=== PATIENT | male | born 1965 | race Caucasian/White ===

== ENCOUNTER 2018-09-04 02:52 | Outpatient (CLI) | payer OTHER ==
[2018-09-04 10:13] LABS: #Eosinphils 0.2 thou/uL (0.0-0.7); #Monocytes 0.7 thou/uL (0.11-0.59); %Basophils 0.5 % (0.0-1.0); %Eosinophils 2.1 % (0.0-10.0); %Lymphocytes 25.6 % (21.0-51.0); %Monocytes 8.7 % (0.0-10.0); %Neutrophils 63.1 % (42.0-75.0); Mean Corpuscular HGB CONC 31.9 g/dL (32.0-36.0); Mean Corpuscular Hemoglobin 29.8 pg (27.0-31.0); Mean Corpuscular Volume 93.7 fL (78.0-98.0); Mean Platelet Volume 7.9 fL (7.4-10.4); Platelet Count 244 thou/uL (130-400); RBC Distribution Width 12.9 % (11.5-14.5); Red Blood Cell (RBC) Count 5.38 mill/uL (4.70-6.10); White Blood Cell (WBC) Count 7.9 thou/uL (4.8-10.8)
[2018-09-04 10:36] LABS: ALT (SGPT) 25 U/L (8-55); AST (SGOT) 17 U/L (5-34); Albumin 4.2 g/dL (3.5-5.0); Alkaline Phosphatase 59 U/L (40-150); Anion Gap 14 mmol/L (10-20); BUN (Urea Nitrogen) 29 mg/dL (8.4-25.7); Bilirubin, Total 0.6 mg/dL (0.2-1.2); Calc. Creatinine Clearance 0 mL/min (70-130); Calcium 9.4 mg/dL (7.8-10.44); Carbon Dioxide 27 mmol/L (22-29); Cardiac Risk 4.2 (Less than 4.5); Chloride 106 mmol/L (98-107); Cholesterol 162 mg/dl (< 200 Desired); Estimated GFR-MDRD 69; Globulin 3.5 g/dL (2.4-3.5); Glucose 99 mg/dL (70-105); HDL Cholesterol 39 mg/dL (>60 Neg Risk); LDL Cholesterol, Calculated 96 mg/dL; Potassium 4.2 mmol/L (3.5-5.1); Protein, Total 7.7 g/dL (6.0-8.3); Sodium 143 mmol/L (136-145); Triglycerides 135 mg/dL (Less than 150)
--- NOTE | 2018-09-04 11:40 | RAD ---
CHEST 1 VIEW: Date: 09/04/18 HISTORY: Preop. FINDINGS: Heart size is enlarged. There are atherosclerotic changes of the aorta. Lungs are clear of any infilt rative process. IMPRESSION: Cardiomegaly. No active intrathoracic disease. POS: [facility]
--- NOTE | 2018-09-06 08:54 | EKG ---
Test Reason : Blood Pressure : / mmHG Vent. Rate : 065 BPM Atrial Rate : 065 BPM P-R Int : 168 ms QRS Dur : 100 ms QT Int : 422 ms P-R-T Axes : 040 -44 054 degrees QTc Int : 438 ms Normal sinus rhythm Left axis deviation Abnormal ECG When compared with ECG of 12-MAR-2018 19:04, No significant change was found Confirmed by DR. Gricelda JENNINGS ([id number]) on 09/06/2018 8:54:23 AM Referred By: MARBIN Confirmed By:DR. Gricelda JENNINGS
== END 2018-09-04 02:53 | disposition home or self-care (01) ==
LOC: LABBT 02:52
PROVIDERS: ATTEND Internal Medicine Cardiovascular Disease
DX: Z01.818 Encounter for other preprocedural examination (principal); R94.39 Abnormal result of other cardiovascular function study
CPT/HCPCS: 71045; 80053; 80061; 85025; 93005; 93010

== ENCOUNTER 2018-09-06 05:55 | Day surgery (SDC) | payer OTHER ==
[2018-09-04 09:27] VITALS: BMI 45.8
[2018-09-06] MEDS ORDERED: Heparin 10,000 UNITS/1 ML VIAL ONE (06:46)
[2018-09-06] MEDS ORDERED: Fentanyl 100 MCG/2 ML VIAL ONE (07:11)
[2018-09-06] MEDS ORDERED: Midazolam HCl 2 mg/2 ml Vial ONE (07:11)
[2018-09-06] MEDS ORDERED: Protamine Sulfate 50 MG/5 ML VIAL ONE (07:42)
[2018-09-06] MEDS ORDERED: Iopamidol 370 76% 100 ML VIAL ONE (09:23)
[2018-09-06] MEDS ORDERED: Iopamidol 370 76% 50 ML VIAL FS ONE (09:23)
== END 2018-09-06 15:09 | disposition home or self-care (01) ==
LOC: CCL 05:55
PROVIDERS: ATTEND Internal Medicine Cardiovascular Disease
PROC: B2111ZZ Fluoroscopy of Multiple Coronary Arteries using Low Osmolar Contrast (ICD-10-PCS; principal; 2018-09-06)
PROC: 4A023N7 Measurement of Cardiac Sampling and Pressure, Left Heart, Percutaneous Approach (ICD-10-PCS; principal; 2018-09-06)
DX: I25.10 Atherosclerotic heart disease of native coronary artery without angina pectoris (principal); E78.00 Pure hypercholesterolemia, unspecified; I11.0 Hypertensive heart disease with heart failure; I50.32 Chronic diastolic (congestive) heart failure; I82.501 Chronic embolism and thrombosis of unspecified deep veins of right lower extremity; D68.51 Activated protein C resistance; E66.9 Obesity, unspecified; Z68.42 Body mass index [BMI] 45.0-49.9, adult; Z87.891 Personal history of nicotine dependence; Z79.01 Long term (current) use of anticoagulants; Z79.82 Long term (current) use of aspirin; Z79.899 Other long term (current) drug therapy
CPT/HCPCS: 85347; 93458; 99152; C1769; J1644; J2250; J2720; J3010; Q9967

== ENCOUNTER 2021-12-28 08:58 | Day surgery (SDC) | payer SELFPAY ==
[2021-12-23 12:58] VITALS: BMI 42.8
[2021-12-28] MEDS ORDERED: Lidocaine 1% (PF) 30 ML VIAL ONE (09:43)
[2021-12-28] MEDS ORDERED: Isoproterenol 0.2 MG/1 ML AMP ONE (09:43)
[2021-12-28] MEDS ORDERED: Heparin 10,000 UNITS/ 10 ML VIAL ONE (09:43)
[2021-12-28] MEDS ORDERED: Heparin 25,000 units/D5W 0 ML ONE (09:43)
[2021-12-28] MEDS ORDERED: PROPOFOL 200 MG/20 ML VIAL ONE (13:50)
== END 2021-12-28 15:15 | disposition home or self-care (01) ==
LOC: SDC 08:58
PROVIDERS: ATTEND Internal Medicine Cardiovascular Disease
PROC: 5A2204Z Restoration of Cardiac Rhythm, Single (ICD-10-PCS; principal; 2021-12-28)
DX: I48.3 Typical atrial flutter (principal); D68.51 Activated protein C resistance; I11.0 Hypertensive heart disease with heart failure; I50.32 Chronic diastolic (congestive) heart failure; I08.1 Rheumatic disorders of both mitral and tricuspid valves; J44.9 Chronic obstructive pulmonary disease, unspecified; I25.10 Atherosclerotic heart disease of native coronary artery without angina pectoris; E78.5 Hyperlipidemia, unspecified; I45.2 Bifascicular block; E66.01 Morbid (severe) obesity due to excess calories; Z68.41 Body mass index [BMI] 40.0-44.9, adult; Z86.718 Personal history of other venous thrombosis and embolism; Z87.891 Personal history of nicotine dependence; Z79.01 Long term (current) use of anticoagulants; Z79.82 Long term (current) use of aspirin; Z79.899 Other long term (current) drug therapy
CPT/HCPCS: 93005; 93010; J1644; J2001; J2704

== ENCOUNTER 2022-04-21 09:20 | Inpatient (IN) | payer OTHER ==
[2022-04-21 09:56] LABS: #Basophils 0.1 thou/uL (0.0-0.2); #Lymphocytes 0.8 thou/uL (1.20-3.40); #Monocytes 0.5 thou/uL (0.11-0.59); #Neutrophils 4.7 thou/uL (1.40-6.50); %Basophils 0.9 % (0.0-1.0); %Eosinophils 0.4 % (0.0-10.0); %Lymphocytes 13.4 % (21.0-51.0); %Monocytes 8.9 % (0.0-10.0); %Neutrophils 76.4 % (42.0-75.0); Hemoglobin 16.5 g/dL (14.0-18.0); Mean Corpuscular Hemoglobin 27.1 pg (27.0-31.0); Mean Corpuscular Volume 96.7 fL (78.0-98.0); Platelet Count 200 thou/uL (130-400); RBC Distribution Width 20.7 % (11.5-14.5); White Blood Cell (WBC) Count 6.1 thou/uL (4.8-10.8)
[2022-04-21] MEDS ORDERED: Furosemide 40 MG/4 ML VIAL ONE (10:14)
[2022-04-21 10:21] LABS: ALT (SGPT) Less than 7 U/L (8-55); AST (SGOT) 12 U/L (5-34); Albumin 3.4 g/dL (3.5-5.0); Alkaline Phosphatase 88 U/L (40-110); Anion Gap 11 mmol/L (10-20); BUN (Urea Nitrogen) 18 mg/dL (8.4-25.7); Bilirubin, Total 1.1 mg/dL (0.2-1.2); Calc. Creatinine Clearance 0 mL/min (70-130); Calcium 8.7 mg/dL (7.8-10.44); Carbon Dioxide 32 mmol/L (22-29); Chloride 101 mmol/L (98-107); Estimated GFR 102; Globulin 3.2 g/dL (2.4-3.5); Glucose 91 mg/dL (70-105); Potassium 4.4 mmol/L (3.5-5.1); Protein, Total 6.6 g/dL (6.0-8.3); Sodium 140 mmol/L (136-145)
[2022-04-21 11:54] LABS: Magnesium 1.7 mg/dL (1.6-2.6)
[2022-04-21] MEDS ORDERED: Magnesium Sulfate 4 GM in Sodium Chloride 0.9% 250 ML 250 ML IVPB SCH (13:00)
[2022-04-21] MEDS ORDERED: Electrolyte Replacement Protocol 1 EACH FS SCH (13:00)
[2022-04-21] MEDS ORDERED: Magnesium 2 GM/50 ML(in water) 2 GM in Premix Bag 1 BAG IVPB SCH (13:30)
[2022-04-21] MEDS ORDERED: Electrolyte Replacement Protocol FS PRN (13:30)
[2022-04-21] MEDS ORDERED: Ondansetron ODT 4 MG TAB PO PRN (13:37)
[2022-04-21] MEDS ORDERED: Ondansetron PF 4 MG/2 ML Vial IVP PRN (13:37)
[2022-04-21] MEDS ORDERED: Calcium Carbonate 500 MG ChewTAB PO PRN (13:37)
[2022-04-21] MEDS ORDERED: Acetaminophen 325 MG TAB PO PRN (13:37)
[2022-04-21] MEDS ORDERED: Furosemide 40 MG/4 ML VIAL SLOW IVP SCH (14:00)
[2022-04-21 15:30] VITALS: BMI 41.2
[2022-04-21] MEDS: Metoprolol Tartrate 100 MG TAB PO SCH (20:28)
[2022-04-21] MEDS: Senokot S 8.6-50 MG TAB PO SCH (20:28)
[2022-04-21] MEDS: Famotidine 20 MG TAB PO SCH (20:28)
[2022-04-21] MEDS: Ezetimibe 10 MG TAB PO SCH (20:28)
[2022-04-21] MEDS: Acetaminophen 500 MG TAB PO PRN (20:31)
[2022-04-22 04:57] LABS: Hemoglobin 16.3 g/dL (14.0-18.0); Mean Corpuscular HGB CONC 27.1 g/dL (32.0-36.0); Mean Corpuscular Hemoglobin 26.7 pg (27.0-31.0); Mean Corpuscular Volume 98.5 fL (78.0-98.0); Mean Platelet Volume 9.7 fL (7.4-10.4); Platelet Count 184 thou/uL (130-400); RBC Distribution Width 20.1 % (11.5-14.5); White Blood Cell (WBC) Count 4.8 thou/uL (4.8-10.8)
[2022-04-22 05:05] LABS: #Lymphocytes 0.9 thou/uL (1.20-3.40); #Monocytes 0.6 thou/uL (0.11-0.59); #Neutrophils 3.3 thou/uL (1.40-6.50); %Basophils 0.4 % (0.0-1.0); %Eosinophils 0.8 % (0.0-10.0); %Lymphocytes 18.3 % (21.0-51.0); %Monocytes 11.7 % (0.0-10.0); %Neutrophils 68.9 % (42.0-75.0)
[2022-04-22 05:16] LABS: ALT (SGPT) Less than 7 U/L (8-55); AST (SGOT) 12 U/L (5-34); Albumin 3.5 g/dL (3.5-5.0); Alkaline Phosphatase 89 U/L (40-110); Anion Gap 14 mmol/L (10-20); BUN (Urea Nitrogen) 19 mg/dL (8.4-25.7); Bilirubin, Total 1.3 mg/dL (0.2-1.2); Calc. Creatinine Clearance 183 mL/min (70-130); Calcium 8.9 mg/dL (7.8-10.44); Carbon Dioxide 30 mmol/L (22-29); Chloride 100 mmol/L (98-107); Estimated GFR 103; Globulin 3.1 g/dL (2.4-3.5); Glucose 77 mg/dL (70-105); Magnesium 1.9 mg/dL (1.6-2.6); Potassium 4.2 mmol/L (3.5-5.1); Protein, Total 6.6 g/dL (6.0-8.3); Sodium 140 mmol/L (136-145)
[2022-04-22] MEDS ORDERED: Magnesium 2 GM/50 ML(in water) 2 GM in Premix Bag 1 BAG IVPB SCH ×2 (06:45→08:00)
[2022-04-22] MEDS ORDERED: Furosemide 40 MG/4 ML VIAL SLOW IVP SCH (08:15)
[2022-04-22] MEDS ORDERED: Furosemide 40 MG TAB PO SCH (09:00)
[2022-04-22] MEDS: Metoprolol Tartrate 100 MG TAB PO SCH ×2 (10:37→20:17)
[2022-04-22] MEDS: Famotidine 20 MG TAB PO SCH ×2 (10:37→20:17)
[2022-04-22] MEDS: Amlodipine 5 MG TAB PO SCH (10:38)
[2022-04-22] MEDS: Aspirin 81 mg Enteric Coated Tablet PO SCH (10:38)
[2022-04-22] MEDS: Lisinopril 20 MG TAB PO SCH (10:38)
[2022-04-22] MEDS: Rivaroxaban 10 MG TAB PO SCH (10:38)
[2022-04-22] MEDS: Atorvastatin Calcium 40 MG TAB PO SCH (10:38)
[2022-04-22] MEDS: Senokot S 8.6-50 MG TAB PO SCH ×2 (10:39→20:20)
[2022-04-22] MEDS: Furosemide 40 MG/4 ML VIAL SLOW IVP SCH (14:26)
[2022-04-22] MEDS: Ezetimibe 10 MG TAB PO SCH (20:17)
[2022-04-22] MEDS: Acetaminophen 500 MG TAB PO PRN (20:23)
[2022-04-23] MEDS: Furosemide 40 MG/4 ML VIAL SLOW IVP SCH ×2 (06:23→13:36)
[2022-04-23] MEDS: Amlodipine 5 MG TAB PO SCH (08:36)
[2022-04-23] MEDS: Atorvastatin Calcium 40 MG TAB PO SCH (08:37)
[2022-04-23] MEDS: Aspirin 81 mg Enteric Coated Tablet PO SCH (08:37)
[2022-04-23] MEDS: Lisinopril 20 MG TAB PO SCH (08:38)
[2022-04-23] MEDS: Famotidine 20 MG TAB PO SCH ×2 (08:38→20:03)
[2022-04-23] MEDS: Metoprolol Tartrate 100 MG TAB PO SCH ×2 (08:40→20:03)
[2022-04-23] MEDS: Rivaroxaban 10 MG TAB PO SCH (08:40)
[2022-04-23] MEDS: Senokot S 8.6-50 MG TAB PO SCH ×2 (08:41→08:45)
[2022-04-23] MEDS ORDERED: Chloraseptic Spray 180 ml Bottle PO PRN (10:53)
[2022-04-23] MEDS: Acetaminophen 500 MG TAB PO PRN (20:02)
[2022-04-23] MEDS: Ezetimibe 10 MG TAB PO SCH (20:03)
[2022-04-24] MEDS: Senokot S 8.6-50 MG TAB PO SCH ×3 (00:14→21:02)
[2022-04-24 05:11] LABS: Hemoglobin 16.6 g/dL (14.0-18.0); Mean Corpuscular HGB CONC 28.1 g/dL (32.0-36.0); Mean Corpuscular Hemoglobin 27.1 pg (27.0-31.0); Mean Corpuscular Volume 96.6 fL (78.0-98.0); Mean Platelet Volume 10.7 fL (7.4-10.4); Platelet Count 156 thou/uL (130-400); Red Blood Cell (RBC) Count 6.13 mill/uL (4.70-6.10); White Blood Cell (WBC) Count 5.8 thou/uL (4.8-10.8)
[2022-04-24] MEDS: Furosemide 40 MG/4 ML VIAL SLOW IVP SCH ×2 (05:18→14:45)
[2022-04-24 05:23] LABS: Anion Gap 17 mmol/L (10-20); BUN (Urea Nitrogen) 25 mg/dL (8.4-25.7); Calc. Creatinine Clearance 152 mL/min (70-130); Calcium 9.4 mg/dL (7.8-10.44); Carbon Dioxide 32 mmol/L (22-29); Chloride 99 mmol/L (98-107); Estimated GFR 95; Glucose 81 mg/dL (70-105); Sodium 144 mmol/L (136-145)
[2022-04-24] MEDS: Atorvastatin Calcium 40 MG TAB PO SCH (09:11)
[2022-04-24] MEDS: Famotidine 20 MG TAB PO SCH ×2 (09:12→21:00)
[2022-04-24] MEDS: Lisinopril 20 MG TAB PO SCH (09:12)
[2022-04-24] MEDS: Aspirin 81 mg Enteric Coated Tablet PO SCH (09:13)
[2022-04-24] MEDS: Rivaroxaban 10 MG TAB PO SCH (09:13)
[2022-04-24] MEDS: Metoprolol Tartrate 100 MG TAB PO SCH ×2 (09:13→21:00)
[2022-04-24] MEDS: Amlodipine 5 MG TAB PO SCH (09:13)
[2022-04-24 11:29] LABS: Bacteria/HPF None Seen HPF (None Seen); Bilirubin Negative (Negative); Blood, Urine 2+ (Negative); Clarity Clear (Clear); Glucose, Urine (Dipstick) Normal (Negative); Ketone, Urine Negative (Negative); Leukocyte Negative Leu/uL (Negative); Nitrite Negative (Negative); Protein, Urine (Dipstick) Negative (Neg-Trace); RBC/HPF 0-3 HPF (0-3); Specific Gravity, Urine 1.007 (1.002-1.036); Squamous Epithelial 0-3 HPF (0-3); Urobilinogen Normal mg/dL (Less than 2); WBC/HPF 0-3 HPF (0-3); pH, Urine 5.5 (5.0-9.0)
[2022-04-24 11:31] LABS: Urine Culture Reflex No No
[2022-04-24] MEDS ORDERED: ALPRAZolam 0.5 MG TAB PO SCH (19:00)
[2022-04-24 19:13] LABS: Base Excess (BEa) 8.3 mEq/L (-2.0 to +3.0); CO2 Tension 59.8 mmHg (35.0-45.0); Calcium, Ionized (arterial) 1.17 mmol/L (1.12-1.30); Carboxyhemoglobin (COHb) 2.1 gm% (0.0-3.0); Hemoglobin (Hb) 18.1 g/dL (14.0-18.0); O2 Tension (PaO2), arterial 60.9 mmHg (80.0-100.0); Potassium - ABG Lab 3.78 mmol/L (3.70-5.30)
[2022-04-24 19:20] LABS: Puncture Site LRA
[2022-04-24] MEDS: Ezetimibe 10 MG TAB PO SCH (21:00)
[2022-04-25] MEDS ORDERED: OLANZapine 10 MG VIAL IM SCH (01:45)
[2022-04-25] MEDS: Furosemide 40 MG/4 ML VIAL SLOW IVP SCH ×2 (06:30→15:31)
[2022-04-25 09:01] LABS: Anion Gap 17 mmol/L (10-20); BUN (Urea Nitrogen) 24 mg/dL (8.4-25.7); Calc. Creatinine Clearance 137 mL/min (70-130); Calcium 9.1 mg/dL (7.8-10.44); Carbon Dioxide 30 mmol/L (22-29); Chloride 99 mmol/L (98-107); Estimated GFR 87; Glucose 70 mg/dL (70-105); Potassium 4.2 mmol/L (3.5-5.1); Sodium 142 mmol/L (136-145)
[2022-04-25] MEDS: Lisinopril 20 MG TAB PO SCH (09:16)
[2022-04-25] MEDS: Atorvastatin Calcium 40 MG TAB PO SCH (09:16)
[2022-04-25] MEDS: Famotidine 20 MG TAB PO SCH ×2 (09:27→20:32)
[2022-04-25] MEDS: Aspirin 81 mg Enteric Coated Tablet PO SCH (09:27)
[2022-04-25] MEDS: Amlodipine 5 MG TAB PO SCH (09:27)
[2022-04-25] MEDS: Metoprolol Tartrate 100 MG TAB PO SCH ×2 (09:27→20:32)
[2022-04-25] MEDS: Rivaroxaban 10 MG TAB PO SCH (09:27)
[2022-04-25] MEDS: Senokot S 8.6-50 MG TAB PO SCH ×2 (09:28→20:32)
[2022-04-25] MEDS ORDERED: acetaZOLAMIDE Sodium 500 mg Vial IVP SCH (10:30)
[2022-04-25] MEDS ORDERED: Sterile Water 10 ML ONE (11:25)
[2022-04-25] MEDS: Ezetimibe 10 MG TAB PO SCH (20:32)
[2022-04-25] MEDS: acetaZOLAMIDE Sodium 500 mg Vial IVP SCH (20:40)
[2022-04-26] MEDS: Acetaminophen 500 MG TAB PO PRN ×3 (02:50→21:00)
[2022-04-26 04:24] LABS: Hemoglobin 17.2 g/dL (14.0-18.0); Mean Corpuscular HGB CONC 28.5 g/dL (32.0-36.0); Mean Corpuscular Hemoglobin 28.3 pg (27.0-31.0); Mean Corpuscular Volume 99.3 fL (78.0-98.0); Platelet Count 129 thou/uL (130-400); RBC Distribution Width 21.1 % (11.5-14.5); White Blood Cell (WBC) Count 6.7 thou/uL (4.8-10.8)
[2022-04-26] MEDS: Furosemide 40 MG/4 ML VIAL SLOW IVP SCH ×2 (05:33→14:37)
[2022-04-26 09:53] LABS: Chloride 98 mmol/L (98-107); Potassium 3.8 mmol/L (3.5-5.1); Sodium 146 mmol/L (136-145)
[2022-04-26 09:54] LABS: Calcium 8.8 mg/dL (7.8-10.44); Glucose 66 mg/dL (70-105)
[2022-04-26 09:56] LABS: Carbon Dioxide 37 mmol/L (22-29)
[2022-04-26 09:58] LABS: BUN (Urea Nitrogen) 23 mg/dL (8.4-25.7); Calc. Creatinine Clearance 141 mL/min (70-130); Estimated GFR 93
[2022-04-26] MEDS: Sterile Water 10 ML ONE (10:07)
[2022-04-26] MEDS: acetaZOLAMIDE Sodium 500 mg Vial IVP SCH ×2 (10:07→20:59)
[2022-04-26] MEDS: Metoprolol Tartrate 100 MG TAB PO SCH ×3 (10:08→21:01)
[2022-04-26] MEDS: Rivaroxaban 10 MG TAB PO SCH (10:08)
[2022-04-26] MEDS: Atorvastatin Calcium 40 MG TAB PO SCH (10:08)
[2022-04-26] MEDS: Lisinopril 20 MG TAB PO SCH (10:09)
[2022-04-26] MEDS: Famotidine 20 MG TAB PO SCH ×2 (10:09→21:00)
[2022-04-26] MEDS: Aspirin 81 mg Enteric Coated Tablet PO SCH (10:09)
[2022-04-26] MEDS: Amlodipine 5 MG TAB PO SCH (10:10)
[2022-04-26] MEDS: Senokot S 8.6-50 MG TAB PO SCH ×2 (10:11→21:00)
[2022-04-26 11:09] LABS: Anion Gap 15 mmol/L (10-20)
[2022-04-26 13:20] LABS: Actual Bicarbonate (HCO3a) 39.2 mEq/L (22-28); Base Excess (BEa) 6.5 mEq/L (-2.0 to +3.0); Calcium, Ionized (arterial) 1.16 mmol/L (1.12-1.30); Carboxyhemoglobin (COHb) 3.4 gm% (0.0-3.0); Hemoglobin (Hb) 16.9 g/dL (14.0-18.0); Potassium - ABG Lab 3.87 mmol/L (3.70-5.30)
[2022-04-26 13:34] LABS: pH, Arterial 7.22 (7.35-7.45)
[2022-04-26 13:35] LABS: CO2 Tension 98.8 mmHg (35.0-45.0); O2 Tension (PaO2), arterial 50.2 mmHg (80.0-100.0)
[2022-04-26 13:36] LABS: Puncture Site RRA
[2022-04-26] MEDS: Ezetimibe 10 MG TAB PO SCH (21:00)
[2022-04-27] MEDS: Acetaminophen 500 MG TAB PO PRN ×3 (03:56→20:35)
[2022-04-27 04:08] LABS: BUN (Urea Nitrogen) 26 mg/dL (8.4-25.7); Calc. Creatinine Clearance 148 mL/min (70-130); Calcium 8.4 mg/dL (7.8-10.44); Estimated GFR 98; Glucose 70 mg/dL (70-105)
[2022-04-27 04:17] LABS: Anion Gap 15 mmol/L (10-20); Carbon Dioxide 34 mmol/L (22-29); Chloride 98 mmol/L (98-107); Potassium 3.8 mmol/L (3.5-5.1); Sodium 143 mmol/L (136-145)
[2022-04-27] MEDS: Furosemide 40 MG/4 ML VIAL SLOW IVP SCH ×2 (05:39→13:52)
[2022-04-27 05:47] LABS: Hemoglobin 15.5 g/dL (14.0-18.0); Mean Corpuscular HGB CONC 27.1 g/dL (32.0-36.0); Mean Corpuscular Hemoglobin 26.9 pg (27.0-31.0); Mean Corpuscular Volume 99.3 fL (78.0-98.0); Mean Platelet Volume 10.6 fL (7.4-10.4); Platelet Count 127 thou/uL (130-400); RBC Distribution Width 20.5 % (11.5-14.5); Red Blood Cell (RBC) Count 5.75 mill/uL (4.70-6.10)
[2022-04-27] MEDS ORDERED: Sterile Water 10 ML ONE (09:17)
[2022-04-27] MEDS: acetaZOLAMIDE Sodium 500 mg Vial IVP SCH ×2 (09:47→20:35)
[2022-04-27] MEDS: Sterile Water 10 ML ONE (09:48)
[2022-04-27] MEDS: Famotidine 20 MG TAB PO SCH ×2 (09:49→20:36)
[2022-04-27] MEDS: Rivaroxaban 10 MG TAB PO SCH (09:49)
[2022-04-27] MEDS: Amlodipine 5 MG TAB PO SCH (09:50)
[2022-04-27] MEDS: Aspirin 81 mg Enteric Coated Tablet PO SCH (09:50)
[2022-04-27] MEDS: Atorvastatin Calcium 40 MG TAB PO SCH (09:50)
[2022-04-27] MEDS: Lisinopril 20 MG TAB PO SCH (09:52)
[2022-04-27] MEDS: Senokot S 8.6-50 MG TAB PO SCH ×2 (09:53→20:36)
[2022-04-27] MEDS: Metoprolol Tartrate 100 MG TAB PO SCH ×2 (09:53→20:36)
[2022-04-27] MEDS: Ezetimibe 10 MG TAB PO SCH (20:36)
[2022-04-28 04:10] LABS: BUN (Urea Nitrogen) 27 mg/dL (8.4-25.7); Calc. Creatinine Clearance 163 mL/min (70-130); Calcium 8.5 mg/dL (7.8-10.44); Estimated GFR 101; Glucose 79 mg/dL (70-105)
[2022-04-28 04:20] LABS: Anion Gap 15 mmol/L (10-20); Carbon Dioxide 37 mmol/L (22-29); Chloride 95 mmol/L (98-107); Potassium 3.4 mmol/L (3.5-5.1); Sodium 144 mmol/L (136-145)
[2022-04-28] MEDS: Furosemide 40 MG/4 ML VIAL SLOW IVP SCH (05:48)
[2022-04-28] MEDS: Amlodipine 5 MG TAB PO SCH (09:02)
[2022-04-28] MEDS: Lisinopril 20 MG TAB PO SCH (09:03)
[2022-04-28] MEDS: Metoprolol Tartrate 100 MG TAB PO SCH ×2 (09:03→20:52)
[2022-04-28] MEDS: Atorvastatin Calcium 40 MG TAB PO SCH (09:04)
[2022-04-28] MEDS: Famotidine 20 MG TAB PO SCH ×2 (09:04→20:51)
[2022-04-28] MEDS: Rivaroxaban 10 MG TAB PO SCH (09:04)
[2022-04-28] MEDS: Aspirin 81 mg Enteric Coated Tablet PO SCH (09:04)
[2022-04-28] MEDS: Acetaminophen 500 MG TAB PO PRN (09:04)
[2022-04-28] MEDS: acetaZOLAMIDE Sodium 500 mg Vial IVP SCH ×2 (09:06→21:13)
[2022-04-28] MEDS: Sterile Water 10 ML VIAL IVP SCH ×2 (09:08→21:13)
[2022-04-28] MEDS: Senokot S 8.6-50 MG TAB PO SCH ×2 (09:18→20:50)
[2022-04-28] MEDS ORDERED: Potassium Chloride 20 MEQ TAB PO SCH (10:00)
[2022-04-28] MEDS: Ezetimibe 10 MG TAB PO SCH (20:50)
[2022-04-28] MEDS: Sodium Chloride 0.65% Nasal 44 ML BOT EA NARE SCH (20:53)
[2022-04-29] MEDS: Acetaminophen 500 MG TAB PO PRN (00:52)
[2022-04-29 03:53] LABS: #Eosinphils 0.1 thou/uL (0.0-0.7); #Monocytes 0.6 thou/uL (0.11-0.59); #Neutrophils 3.7 thou/uL (1.40-6.50); %Basophils 0.2 % (0.0-1.0); %Eosinophils 1.4 % (0.0-10.0); %Lymphocytes 17.8 % (21.0-51.0); %Monocytes 10.9 % (0.0-10.0); %Neutrophils 69.6 % (42.0-75.0); Hemoglobin 14.9 g/dL (14.0-18.0); Mean Corpuscular HGB CONC 27.5 g/dL (32.0-36.0); Mean Corpuscular Hemoglobin 27.1 pg (27.0-31.0); Mean Corpuscular Volume 98.6 fL (78.0-98.0); Mean Platelet Volume 10.1 fL (7.4-10.4); Platelet Count 131 thou/uL (130-400); RBC Distribution Width 20.3 % (11.5-14.5); Red Blood Cell (RBC) Count 5.48 mill/uL (4.70-6.10); White Blood Cell (WBC) Count 5.4 thou/uL (4.8-10.8)
[2022-04-29 04:11] LABS: BUN (Urea Nitrogen) 25 mg/dL (8.4-25.7); Calc. Creatinine Clearance 194 mL/min (70-130); Calcium 8.5 mg/dL (7.8-10.44); Estimated GFR 108; Glucose 72 mg/dL (70-105)
[2022-04-29 04:21] LABS: Anion Gap 15 mmol/L (10-20); Carbon Dioxide 34 mmol/L (22-29); Chloride 98 mmol/L (98-107); Potassium 3.7 mmol/L (3.5-5.1); Sodium 143 mmol/L (136-145)
[2022-04-29] MEDS: Amlodipine 5 MG TAB PO SCH (08:54)
[2022-04-29] MEDS: Lisinopril 20 MG TAB PO SCH (08:54)
[2022-04-29] MEDS: Metoprolol Tartrate 100 MG TAB PO SCH ×2 (08:54→21:08)
[2022-04-29] MEDS: Aspirin 81 mg Enteric Coated Tablet PO SCH (08:58)
[2022-04-29] MEDS: Senokot S 8.6-50 MG TAB PO SCH ×2 (08:58→21:07)
[2022-04-29] MEDS: Atorvastatin Calcium 40 MG TAB PO SCH (08:58)
[2022-04-29] MEDS: Rivaroxaban 10 MG TAB PO SCH (08:58)
[2022-04-29] MEDS: Famotidine 20 MG TAB PO SCH ×2 (08:58→21:07)
[2022-04-29] MEDS: Sterile Water 10 ML VIAL IVP SCH ×2 (08:59→21:08)
[2022-04-29] MEDS: acetaZOLAMIDE Sodium 500 mg Vial IVP SCH ×2 (08:59→21:08)
[2022-04-29] MEDS: Ezetimibe 10 MG TAB PO SCH (21:07)
[2022-04-29] MEDS: Sodium Chloride 0.65% Nasal 44 ML BOT EA NARE SCH (21:13)
[2022-04-30 04:27] LABS: Anion Gap 10 mmol/L (10-20); BUN (Urea Nitrogen) 21 mg/dL (8.4-25.7); Calc. Creatinine Clearance 188 mL/min (70-130); Calcium 8.8 mg/dL (7.8-10.44); Carbon Dioxide 34 mmol/L (22-29); Chloride 99 mmol/L (98-107); Estimated GFR 108; Glucose 75 mg/dL (70-105); Potassium 3.8 mmol/L (3.5-5.1); Sodium 139 mmol/L (136-145)
[2022-04-30] MEDS: Senokot S 8.6-50 MG TAB PO SCH ×2 (08:56→20:34)
[2022-04-30] MEDS: Famotidine 20 MG TAB PO SCH ×2 (08:56→20:34)
[2022-04-30] MEDS: Rivaroxaban 10 MG TAB PO SCH (08:56)
[2022-04-30] MEDS: Atorvastatin Calcium 40 MG TAB PO SCH (08:56)
[2022-04-30] MEDS: acetaZOLAMIDE Sodium 500 mg Vial IVP SCH ×2 (08:56→20:34)
[2022-04-30] MEDS: Aspirin 81 mg Enteric Coated Tablet PO SCH (08:56)
[2022-04-30] MEDS: Sterile Water 10 ML VIAL IVP SCH ×2 (08:57→20:34)
[2022-04-30] MEDS: Lisinopril 20 MG TAB PO SCH (10:31)
[2022-04-30] MEDS: Amlodipine 5 MG TAB PO SCH (10:31)
[2022-04-30] MEDS: Metoprolol Tartrate 100 MG TAB PO SCH ×2 (10:31→22:25)
[2022-04-30] MEDS: Tamsulosin HCl 0.4 MG CAP PO SCH (20:33)
[2022-04-30] MEDS: Ezetimibe 10 MG TAB PO SCH (20:34)
[2022-04-30] MEDS: Sodium Chloride 0.65% Nasal 44 ML BOT EA NARE SCH (20:35)
[2022-05-01] MEDS: Acetaminophen 500 MG TAB PO PRN ×2 (03:51→09:43)
[2022-05-01] MEDS: acetaZOLAMIDE Sodium 500 mg Vial IVP SCH ×2 (09:26→20:56)
[2022-05-01] MEDS: Senokot S 8.6-50 MG TAB PO SCH ×2 (09:27→20:55)
[2022-05-01] MEDS: Atorvastatin Calcium 40 MG TAB PO SCH (09:28)
[2022-05-01] MEDS: Famotidine 20 MG TAB PO SCH ×2 (09:28→20:55)
[2022-05-01] MEDS: Amlodipine 5 MG TAB PO SCH (09:28)
[2022-05-01] MEDS: Aspirin 81 mg Enteric Coated Tablet PO SCH (09:29)
[2022-05-01] MEDS: Lisinopril 20 MG TAB PO SCH (09:30)
[2022-05-01] MEDS: Metoprolol Tartrate 100 MG TAB PO SCH ×2 (09:30→20:55)
[2022-05-01] MEDS: Sterile Water 10 ML VIAL IVP SCH ×2 (09:31→22:00)
[2022-05-01] MEDS: Rivaroxaban 10 MG TAB PO SCH (09:33)
[2022-05-01] MEDS ORDERED: predniSONE 20 MG TAB PO SCH (11:30)
[2022-05-01] MEDS: Tamsulosin HCl 0.4 MG CAP PO SCH (20:55)
[2022-05-01] MEDS: Ezetimibe 10 MG TAB PO SCH (20:55)
[2022-05-01] MEDS: Sodium Chloride 0.65% Nasal 44 ML BOT EA NARE SCH (20:57)
[2022-05-02] MEDS: Senokot S 8.6-50 MG TAB PO SCH ×2 (08:34→20:39)
[2022-05-02] MEDS: Amlodipine 5 MG TAB PO SCH (08:34)
[2022-05-02] MEDS: Metoprolol Tartrate 100 MG TAB PO SCH ×2 (08:35→20:43)
[2022-05-02] MEDS: Aspirin 81 mg Enteric Coated Tablet PO SCH (08:35)
[2022-05-02] MEDS: predniSONE 20 MG TAB PO SCH (08:35)
[2022-05-02] MEDS: Rivaroxaban 10 MG TAB PO SCH (08:35)
[2022-05-02] MEDS: Famotidine 20 MG TAB PO SCH ×2 (08:35→20:38)
[2022-05-02] MEDS: Atorvastatin Calcium 40 MG TAB PO SCH (08:35)
[2022-05-02] MEDS: Lisinopril 20 MG TAB PO SCH (08:35)
[2022-05-02] MEDS: Sterile Water 10 ML VIAL IVP SCH ×3 (08:35→20:39)
[2022-05-02] MEDS: acetaZOLAMIDE Sodium 500 mg Vial IVP SCH ×2 (09:14→20:39)
[2022-05-02] MEDS: Tamsulosin HCl 0.4 MG CAP PO SCH (20:38)
[2022-05-02] MEDS: Ezetimibe 10 MG TAB PO SCH (20:38)
[2022-05-02] MEDS: Sodium Chloride 0.65% Nasal 44 ML BOT EA NARE SCH (20:39)
[2022-05-02 23:38] LABS: Campy jejuni + coli by PCR Negative (Negative); STEC Shiga Toxin 1+2 Negative (Negative); Salmonella spp. by PCR Negative (Negative); Shigella spp + EIEC by PCR Negative (Negative)
[2022-05-03 07:01] LABS: #Lymphocytes 1.2 thou/uL (1.20-3.40); #Monocytes 0.5 thou/uL (0.11-0.59); #Neutrophils 4.1 thou/uL (1.40-6.50); %Basophils 0.1 % (0.0-1.0); %Eosinophils 0.2 % (0.0-10.0); %Lymphocytes 20.7 % (21.0-51.0); %Neutrophils 70.9 % (42.0-75.0)
[2022-05-03 07:02] LABS: Mean Corpuscular HGB CONC 29.4 g/dL (32.0-36.0); Mean Corpuscular Volume 98.5 fL (78.0-98.0); Mean Platelet Volume 10.2 fL (7.4-10.4); Platelet Count 133 thou/uL (130-400); RBC Distribution Width 19.5 % (11.5-14.5); Red Blood Cell (RBC) Count 5.88 mill/uL (4.70-6.10); White Blood Cell (WBC) Count 5.8 thou/uL (4.8-10.8)
[2022-05-03 07:52] VITALS: BP 103/64; TEMP 97.8
[2022-05-03] MEDS: Amlodipine 5 MG TAB PO SCH (09:11)
[2022-05-03] MEDS: Lisinopril 20 MG TAB PO SCH (09:11)
[2022-05-03] MEDS: Metoprolol Tartrate 100 MG TAB PO SCH (09:12)
[2022-05-03] MEDS: Senokot S 8.6-50 MG TAB PO SCH (09:13)
[2022-05-03] MEDS: predniSONE 20 MG TAB PO SCH (09:13)
[2022-05-03] MEDS: Aspirin 81 mg Enteric Coated Tablet PO SCH (09:13)
[2022-05-03] MEDS: Rivaroxaban 10 MG TAB PO SCH (09:14)
[2022-05-03] MEDS: Atorvastatin Calcium 40 MG TAB PO SCH (09:14)
[2022-05-03] MEDS: Acetaminophen 500 MG TAB PO PRN (09:14)
[2022-05-03] MEDS: acetaZOLAMIDE Sodium 500 mg Vial IVP SCH (09:16)
[2022-05-03] MEDS: Famotidine 20 MG TAB PO SCH (09:16)
[2022-05-03] MEDS: Sterile Water 10 ML VIAL IVP SCH (09:16)
[2022-05-03 09:34] LABS: Anion Gap 9 mmol/L (10-20); BUN (Urea Nitrogen) 26 mg/dL (8.4-25.7); Calc. Creatinine Clearance 163 mL/min (70-130); Calcium 8.8 mg/dL (7.8-10.44); Carbon Dioxide 30 mmol/L (22-29); Chloride 105 mmol/L (98-107); Estimated GFR 105; Glucose 111 mg/dL (70-105); Sodium 140 mmol/L (136-145)
== END 2022-05-03 16:13 | disposition home health service (06) | DRG 291 ==
LOC: ERS 09:20 → 2SW 11:50 → IMCU/EMU 04-24 21:11 → T4-B 05-01 16:19
PROVIDERS: ADMIT Internal Medicine; ATTEND Internal Medicine
PROC: 0T9B70Z Drainage of Bladder with Drainage Device, Via Natural or Artificial Opening (ICD-10-PCS; 2022-04-25)
PROC: 5A09357 Assistance with Respiratory Ventilation, Less than 24 Consecutive Hours, Continuous Positive Airway Pressure (ICD-10-PCS; principal; 2022-04-27)
DX: I11.0 Hypertensive heart disease with heart failure (principal); I50.33 Acute on chronic diastolic (congestive) heart failure; J96.21 Acute and chronic respiratory failure with hypoxia; J96.22 Acute and chronic respiratory failure with hypercapnia; G93.1 Anoxic brain damage, not elsewhere classified; E87.3 Alkalosis; I48.91 Unspecified atrial fibrillation; E78.00 Pure hypercholesterolemia, unspecified; F17.210 Nicotine dependence, cigarettes, uncomplicated; E11.9 Type 2 diabetes mellitus without complications; E78.5 Hyperlipidemia, unspecified; G47.33 Obstructive sleep apnea (adult) (pediatric); E66.01 Morbid (severe) obesity due to excess calories; I08.1 Rheumatic disorders of both mitral and tricuspid valves; R33.9 Retention of urine, unspecified; M10.9 Gout, unspecified; Z20.822 Contact with and (suspected) exposure to COVID-19; Z86.718 Personal history of other venous thrombosis and embolism; Z90.49 Acquired absence of other specified parts of digestive tract; Z79.82 Long term (current) use of aspirin; Z68.34 Body mass index [BMI] 34.0-34.9, adult; Z79.899 Other long term (current) drug therapy; Z98.890 Other specified postprocedural states
CPT/HCPCS: 36415; 36416; 36600; 70450; 71045; 80048; 80053; 81001; 82805; 83630; 83735; 83880; 84484; 85025; 85027; 87505; 87811; 93005; 93010; 93798; 94760; 96374; 97139; J1120; J1940; J3475; J7512; U0003; U0005

== ENCOUNTER 2025-06-08 16:36 | Inpatient (IN) | payer OTHER, SELFPAY ==
[2025-06-08 17:53] LABS: #Basophils 0.03 10x3/uL (0.0-0.2); #Eosinophils 0.07 10x3/uL (0.0-0.7); #Monocytes 0.36 10x3/uL (0.11-0.59); #Neutrophils 5.62 10x3/uL (1.40-6.50); %Basophils 0.4 % (0.0-1.0); %Eosinophils 1.0 % (0.0-10.0); %Lymphocytes 9.0 % (21.0-51.0); %Monocytes 5.4 % (0.0-10.0); %Neutrophils 83.9 % (42.0-75.0); Hematocrit 47.9 % (42.0-52.0); Hemoglobin 14.5 g/dL (14.0-18.0); Mean Corpuscular Hemoglobin 31.2 pg (27.0-31.0); Mean Corpuscular Volume 103.0 fL (78.0-98.0); Platelet Count 235 10x3/uL (130-400); Red Blood Cell (RBC) Count 4.65 mill/uL (4.70-6.10); White Blood Cell (WBC) Count 6.70 10x3/uL (4.8-10.8)
[2025-06-08 18:10] LABS: ALT (SGPT) Less than 7 U/L (Less than 45); AST (SGOT) 14 U/L (11-34); Albumin 3.0 g/dL (3.1-4.5); Alkaline Phosphatase 128 U/L (40-110); Anion Gap 15 mmol/L (10-20); BUN (Urea Nitrogen) 20 mg/dL (8.4-25.7); Bilirubin, Total 1.0 mg/dL (0.3-1.2); Calc. Creatinine Clearance 0 mL/min (70-130); Calcium 8.4 mg/dL (7.8-10.44); Carbon Dioxide 29 mmol/L (23-31); Chloride 99 mmol/L (98-107); Globulin 3.9 g/dL (2.4-3.5); Glucose 63 mg/dL (80-115); Magnesium 1.8 mg/dL (1.6-2.6); Potassium 4.0 mmol/L (3.5-5.1); Sodium 139 mmol/L (136-145)
[2025-06-08 19:02] LABS: Actual Bicarbonate (HCO3v) 29.8 mEq/L (22-28); Base Excess 1.7 mEq/L (-2.0 to +3.0); Calcium, Ionized (venous) 1.07 mmol/L (1.16-1.32); Chloride (VBG) 99 mmol/L (98-106); Hematocrit-VBG 44 % (42.0-52.0); Hemoglobin (Hb) 15.1 g/dL (13.1-17.2); Potassium (VBG) 3.93 mmol/L (3.70-5.30); Sodium 140 mmol/L (133-146)
[2025-06-08] MEDS ORDERED: Furosemide 40 MG (4 mL) VIAL ONE (19:25)
[2025-06-08] MEDS ORDERED: predniSONE 20 MG TAB ONE (19:25)
[2025-06-08] MEDS ORDERED: Magnesium 2 GM/50 ML BAG (IN WATER) ONE (19:26)
[2025-06-09] MEDS: Apixaban 5 MG TAB PO SCH (01:16)
[2025-06-09 04:27] LABS: #Basophils Less than 0.03 10x3/uL (0.0-0.2); #Eosinophils Less than 0.03 10x3/uL (0.0-0.7); #Monocytes 0.08 10x3/uL (0.11-0.59); #Neutrophils 5.92 10x3/uL (1.40-6.50); %Basophils 0.3 % (0.0-1.0); %Eosinophils 0.0 % (0.0-10.0); %Lymphocytes 4.4 % (21.0-51.0); %Monocytes 1.3 % (0.0-10.0); %Neutrophils 93.7 % (42.0-75.0); Hematocrit 49.0 % (42.0-52.0); Hemoglobin 14.8 g/dL (14.0-18.0); Mean Corpuscular Hemoglobin 30.7 pg (27.0-31.0); Mean Corpuscular Volume 101.7 fL (78.0-98.0); Platelet Count 275 10x3/uL (130-400); Red Blood Cell (RBC) Count 4.82 mill/uL (4.70-6.10); White Blood Cell (WBC) Count 6.32 10x3/uL (4.8-10.8)
[2025-06-09 04:51] LABS: Anion Gap 19 mmol/L (10-20); BUN (Urea Nitrogen) 21 mg/dL (8.4-25.7); Calc. Creatinine Clearance 118 mL/min (70-130); Calcium 8.9 mg/dL (7.8-10.44); Carbon Dioxide 28 mmol/L (23-31); Chloride 97 mmol/L (98-107); Glucose 99 mg/dL (80-115); Magnesium 2.0 mg/dL (1.6-2.6); Potassium 4.7 mmol/L (3.5-5.1); Sodium 139 mmol/L (136-145)
[2025-06-09] MEDS: Aspirin 81 mg Enteric Coated Tablet PO SCH (09:44)
[2025-06-09] MEDS ORDERED: VANCOMYCIN IVPB PRN (11:07)
[2025-06-09] MEDS: Vancomycin (BATCH) 2.5 GM in Premix 1 BAG IVPB SCH (13:02)
[2025-06-09] MEDS ORDERED: Furosemide 40 MG (4 mL) VIAL SLOW IVP SCH (14:00)
[2025-06-09] MEDS: Acetaminophen 325 MG TAB PO PRN (15:24)
[2025-06-09] MEDS: Furosemide 40 MG (4 mL) VIAL SLOW IVP SCH (15:24)
[2025-06-10] MEDS: Vancomycin 1.25 GM / NS 250 ML VIAL-2-BAG IVPB SCH (00:26)
[2025-06-10 04:32] LABS: #Basophils Less than 0.03 10x3/uL (0.0-0.2); #Eosinophils Less than 0.03 10x3/uL (0.0-0.7); #Monocytes 0.61 10x3/uL (0.11-0.59); #Neutrophils 6.91 10x3/uL (1.40-6.50); %Basophils 0.1 % (0.0-1.0); %Eosinophils 0.0 % (0.0-10.0); %Lymphocytes 7.1 % (21.0-51.0); %Monocytes 7.5 % (0.0-10.0); %Neutrophils 85.1 % (42.0-75.0); Hematocrit 45.0 % (42.0-52.0); Hemoglobin 13.8 g/dL (14.0-18.0); Mean Corpuscular Hemoglobin 31.0 pg (27.0-31.0); Mean Corpuscular Volume 101.1 fL (78.0-98.0); Platelet Count 260 10x3/uL (130-400); Red Blood Cell (RBC) Count 4.45 mill/uL (4.70-6.10); White Blood Cell (WBC) Count 8.13 10x3/uL (4.8-10.8)
[2025-06-10 04:44] LABS: Vancomycin, Random 32.0 ug/mL (See Comment)
[2025-06-10 04:52] LABS: Anion Gap 13 mmol/L (10-20); BUN (Urea Nitrogen) 26 mg/dL (8.4-25.7); Calc. Creatinine Clearance 117 mL/min (70-130); Calcium 8.4 mg/dL (7.8-10.44); Carbon Dioxide 28 mmol/L (23-31); Chloride 100 mmol/L (98-107); Glucose 120 mg/dL (80-115); Magnesium 2.0 mg/dL (1.6-2.6); Potassium 4.1 mmol/L (3.5-5.1); Sodium 137 mmol/L (136-145)
[2025-06-10] MEDS: Vancomycin 1 GM in Premix 1 BAG IVPB SCH (13:20)
[2025-06-11 04:21] LABS: #Basophils Less than 0.03 10x3/uL (0.0-0.2); #Eosinophils 0.05 10x3/uL (0.0-0.7); #Monocytes 0.56 10x3/uL (0.11-0.59); #Neutrophils 5.45 10x3/uL (1.40-6.50); %Basophils 0.3 % (0.0-1.0); %Eosinophils 0.7 % (0.0-10.0); %Lymphocytes 10.9 % (21.0-51.0); %Monocytes 8.2 % (0.0-10.0); %Neutrophils 79.6 % (42.0-75.0); Hematocrit 44.5 % (42.0-52.0); Hemoglobin 13.7 g/dL (14.0-18.0); Mean Corpuscular Hemoglobin 31.0 pg (27.0-31.0); Mean Corpuscular Volume 100.7 fL (78.0-98.0); Platelet Count 221 10x3/uL (130-400); Red Blood Cell (RBC) Count 4.42 mill/uL (4.70-6.10); White Blood Cell (WBC) Count 6.85 10x3/uL (4.8-10.8)
[2025-06-11 04:39] LABS: Anion Gap 12 mmol/L (10-20); BUN (Urea Nitrogen) 26 mg/dL (8.4-25.7); Calc. Creatinine Clearance 124 mL/min (70-130); Calcium 8.3 mg/dL (7.8-10.44); Carbon Dioxide 33 mmol/L (23-31); Chloride 97 mmol/L (98-107); Glucose 84 mg/dL (80-115); Potassium 3.6 mmol/L (3.5-5.1); Sodium 138 mmol/L (136-145)
[2025-06-12 05:19] LABS: Vancomycin, Random 35.9 ug/mL (See Comment)
[2025-06-12 05:20] LABS: Anion Gap 18 mmol/L (10-20); BUN (Urea Nitrogen) 25 mg/dL (8.4-25.7); Calc. Creatinine Clearance 128 mL/min (70-130); Calcium 8.4 mg/dL (7.8-10.44); Carbon Dioxide 30 mmol/L (23-31); Chloride 98 mmol/L (98-107); Glucose 80 mg/dL (80-115); Potassium 3.9 mmol/L (3.5-5.1); Sodium 142 mmol/L (136-145)
[2025-06-12] MEDS: Furosemide 40 MG TAB PO SCH (09:07)
[2025-06-14 05:06] LABS: Vancomycin, Random 32.8 ug/mL (See Comment)
[2025-06-14] MEDS: Vancomycin 1.25 GM / NS 250 ML VIAL-2-BAG IVPB SCH (22:29)
[2025-06-15 04:21] LABS: Hematocrit 45.2 % (42.0-52.0); Hemoglobin 13.9 g/dL (14.0-18.0); Mean Corpuscular Hemoglobin 30.8 pg (27.0-31.0); Mean Corpuscular Volume 100.2 fL (78.0-98.0); Platelet Count 199 10x3/uL (130-400); Red Blood Cell (RBC) Count 4.51 mill/uL (4.70-6.10); White Blood Cell (WBC) Count 8.11 10x3/uL (4.8-10.8)
[2025-06-15 04:47] LABS: Anion Gap 12 mmol/L (10-20); BUN (Urea Nitrogen) 19 mg/dL (8.4-25.7); Calc. Creatinine Clearance 155 mL/min (70-130); Calcium 8.2 mg/dL (7.8-10.44); Carbon Dioxide 33 mmol/L (23-31); Chloride 99 mmol/L (98-107); Glucose 84 mg/dL (80-115); Potassium 3.4 mmol/L (3.5-5.1); Sodium 141 mmol/L (136-145)
[2025-06-15 04:48] LABS: Vancomycin, Random 29.7 ug/mL (See Comment)
[2025-06-15] MEDS: Vancomycin 1.5 GM / NS 500ML VIAL-2-BAG IVPB SCH (20:28)
[2025-06-16] MEDS ORDERED: Lidocaine 1% (PF) 30 ML VIAL ONE (10:06)
[2025-06-16] MEDS ORDERED: PROPOFOL 200 MG/20 ML VIAL ONE (10:37)
[2025-06-16] MEDS ORDERED: PHENYLEPHRINE-NS 100 MCG/ML 10 ML SYRINGE ONE (10:37)
[2025-06-17 04:36] LABS: Hematocrit 43.5 % (42.0-52.0); Hemoglobin 13.0 g/dL (14.0-18.0); Mean Corpuscular Hemoglobin 31.2 pg (27.0-31.0); Mean Corpuscular Volume 104.3 fL (78.0-98.0); Platelet Count 201 10x3/uL (130-400); Red Blood Cell (RBC) Count 4.17 mill/uL (4.70-6.10); White Blood Cell (WBC) Count 7.16 10x3/uL (4.8-10.8)
[2025-06-17 04:50] LABS: Vancomycin, Random 32.8 ug/mL (See Comment)
[2025-06-17 04:51] LABS: Anion Gap 16 mmol/L (10-20); BUN (Urea Nitrogen) 22 mg/dL (8.4-25.7); Calc. Creatinine Clearance 125 mL/min (70-130); Calcium 8.4 mg/dL (7.8-10.44); Carbon Dioxide 31 mmol/L (23-31); Chloride 100 mmol/L (98-107); Glucose 90 mg/dL (80-115); Potassium 3.9 mmol/L (3.5-5.1); Sodium 143 mmol/L (136-145)
[2025-06-17] MEDS: Furosemide 40 MG (4 mL) VIAL SLOW IVP SCH (14:04)
[2025-06-18] MEDS: Furosemide 40 MG (4 mL) VIAL SLOW IVP SCH (05:54)
[2025-06-18 11:34] LABS: Anion Gap 14 mmol/L (10-20); BUN (Urea Nitrogen) 24 mg/dL (8.4-25.7); Calc. Creatinine Clearance 107 mL/min (70-130); Calcium 8.5 mg/dL (7.8-10.44); Carbon Dioxide 35 mmol/L (23-31); Chloride 99 mmol/L (98-107); Glucose 91 mg/dL (80-115); Potassium 4.5 mmol/L (3.5-5.1); Sodium 143 mmol/L (136-145)
[2025-06-19] MEDS: Vancomycin 1.25 GM / NS 250 ML VIAL-2-BAG IVPB SCH (00:16)
[2025-06-19 05:06] LABS: Anion Gap 13 mmol/L (10-20); BUN (Urea Nitrogen) 28 mg/dL (8.4-25.7); Calc. Creatinine Clearance 104 mL/min (70-130); Calcium 8.5 mg/dL (7.8-10.44); Carbon Dioxide 34 mmol/L (23-31); Chloride 98 mmol/L (98-107); Glucose 81 mg/dL (80-115); Potassium 3.6 mmol/L (3.5-5.1); Sodium 141 mmol/L (136-145)
[2025-06-20 06:20] LABS: Calc. Creatinine Clearance 99.0 mL/min (70-130)
[2025-06-20 06:22] LABS: Vancomycin, Random 35.6 ug/mL (See Comment)
[2025-06-20] MEDS: Furosemide 40 MG TAB PO SCH (08:39)
[2025-06-21] MEDS: Ondansetron PF 4 MG/2 ML Vial IVP PRN (01:46)
[2025-06-21] MEDS: Clindamycin 150 MG CAP PO SCH (09:30)
[2025-06-21] MEDS: Furosemide 40 MG (4 mL) VIAL SLOW IVP SCH ×2 (13:32→22:12)
[2025-06-21 14:01] LABS: Anion Gap 11 mmol/L (10-20); BUN (Urea Nitrogen) 30 mg/dL (8.4-25.7); Calc. Creatinine Clearance 88 mL/min (70-130); Calcium 8.5 mg/dL (7.8-10.44); Carbon Dioxide 35 mmol/L (23-31); Chloride 97 mmol/L (98-107); Glucose 114 mg/dL (80-115); Potassium 3.9 mmol/L (3.5-5.1); Sodium 139 mmol/L (136-145)
[2025-06-21 22:21] LABS: #Basophils 0.05 10x3/uL (0.0-0.2); #Eosinophils 0.16 10x3/uL (0.0-0.7); #Monocytes 0.98 10x3/uL (0.11-0.59); #Neutrophils 7.58 10x3/uL (1.40-6.50); %Basophils 0.5 % (0.0-1.0); %Eosinophils 1.6 % (0.0-10.0); %Lymphocytes 9.2 % (21.0-51.0); %Monocytes 10.1 % (0.0-10.0); %Neutrophils 78.2 % (42.0-75.0); Hematocrit 45.7 % (42.0-52.0); Hemoglobin 13.4 g/dL (14.0-18.0); Mean Corpuscular Hemoglobin 30.8 pg (27.0-31.0); Mean Corpuscular Volume 105.1 fL (78.0-98.0); Platelet Count 203 10x3/uL (130-400); Red Blood Cell (RBC) Count 4.35 mill/uL (4.70-6.10); White Blood Cell (WBC) Count 9.70 10x3/uL (4.8-10.8)
[2025-06-21 22:29] LABS: Actual Bicarbonate (HCO3a) 34.5 mEq/L (22-28); Base Excess (BEa) 5.8 mEq/L (-2.0 to +3.0); Calcium, Ionized (arterial) 1.18 mmol/L (1.12-1.30); Hematocrit-ABG 44 % (42.0-52.0); Hemoglobin (Hb) 14.9 g/dL (14.0-18.0); Potassium - ABG Lab 3.98 mmol/L (3.70-5.30); pH, Arterial 7.318 (7.35-7.45)
[2025-06-21 22:31] LABS: CO2 Tension 68.8 mmHg (35.0-45.0); O2 Tension (PaO2), arterial 49.0 mmHg (> 80.0)
[2025-06-21 22:32] LABS: Puncture Site Right Radial artery
[2025-06-21 22:35] LABS: ALT (SGPT) Less than 7 U/L (Less than 45); AST (SGOT) 15 U/L (11-34); Albumin 2.8 g/dL (3.1-4.5); Alkaline Phosphatase 121 U/L (40-110); Anion Gap 11 mmol/L (10-20); BUN (Urea Nitrogen) 32 mg/dL (8.4-25.7); Bilirubin, Total 0.8 mg/dL (0.3-1.2); Calc. Creatinine Clearance 77 mL/min (70-130); Calcium 8.6 mg/dL (7.8-10.44); Carbon Dioxide 33 mmol/L (23-31); Chloride 97 mmol/L (98-107); Globulin 4.0 g/dL (2.4-3.5); Glucose 104 mg/dL (80-115); Potassium 4.0 mmol/L (3.5-5.1); Sodium 137 mmol/L (136-145)
[2025-06-22] MEDS: Albumin 25% 25 GM (100 mL) BOT IVPB SCH (00:45)
[2025-06-22] MEDS: Furosemide 20 MG (2 mL) VIAL SLOW IVP SCH (05:59)
[2025-06-22 08:21] LABS: #Basophils 0.04 10x3/uL (0.0-0.2); #Eosinophils 0.17 10x3/uL (0.0-0.7); #Monocytes 0.87 10x3/uL (0.11-0.59); #Neutrophils 6.61 10x3/uL (1.40-6.50); %Basophils 0.5 % (0.0-1.0); %Eosinophils 2.0 % (0.0-10.0); %Lymphocytes 10.5 % (21.0-51.0); %Monocytes 10.1 % (0.0-10.0); %Neutrophils 76.4 % (42.0-75.0); Hematocrit 47.7 % (42.0-52.0); Hemoglobin 14.1 g/dL (14.0-18.0); Mean Corpuscular Hemoglobin 30.9 pg (27.0-31.0); Mean Corpuscular Volume 104.6 fL (78.0-98.0); Platelet Count 154 10x3/uL (130-400); Red Blood Cell (RBC) Count 4.56 mill/uL (4.70-6.10); White Blood Cell (WBC) Count 8.64 10x3/uL (4.8-10.8)
[2025-06-22 08:38] LABS: ALT (SGPT) Less than 7 U/L (Less than 45); AST (SGOT) 14 U/L (11-34); Albumin 3.0 g/dL (3.1-4.5); Alkaline Phosphatase 119 U/L (40-110); Anion Gap 18 mmol/L (10-20); BUN (Urea Nitrogen) 31 mg/dL (8.4-25.7); Bilirubin, Total 1.1 mg/dL (0.3-1.2); Calc. Creatinine Clearance 84 mL/min (70-130); Calcium 8.9 mg/dL (7.8-10.44); Carbon Dioxide 28 mmol/L (23-31); Chloride 97 mmol/L (98-107); Globulin 3.7 g/dL (2.4-3.5); Glucose 79 mg/dL (80-115); Potassium 4.0 mmol/L (3.5-5.1); Sodium 139 mmol/L (136-145)
[2025-06-23] MEDS: Furosemide 40 MG (4 mL) VIAL SLOW IVP SCH (14:45)
[2025-06-24] MEDS: Calcium Carbonate 500 MG ChewTAB PO PRN (01:39)
[2025-06-24 06:43] VITALS: BMI 36.9
[2025-06-24 08:22] LABS: #Basophils 0.04 10x3/uL (0.0-0.2); #Eosinophils 0.18 10x3/uL (0.0-0.7); #Monocytes 0.80 10x3/uL (0.11-0.59); #Neutrophils 6.35 10x3/uL (1.40-6.50); %Basophils 0.5 % (0.0-1.0); %Eosinophils 2.2 % (0.0-10.0); %Lymphocytes 9.8 % (21.0-51.0); %Monocytes 9.8 % (0.0-10.0); %Neutrophils 77.5 % (42.0-75.0); Hematocrit 42.5 % (42.0-52.0); Hemoglobin 12.9 g/dL (14.0-18.0); Mean Corpuscular Hemoglobin 30.8 pg (27.0-31.0); Mean Corpuscular Volume 101.4 fL (78.0-98.0); Platelet Count 185 10x3/uL (130-400); Red Blood Cell (RBC) Count 4.19 mill/uL (4.70-6.10); White Blood Cell (WBC) Count 8.19 10x3/uL (4.8-10.8)
[2025-06-24 08:51] LABS: ALT (SGPT) Less than 7 U/L (Less than 45); AST (SGOT) 17 U/L (11-34); Albumin 2.8 g/dL (3.1-4.5); Alkaline Phosphatase 133 U/L (40-110); Anion Gap 17 mmol/L (10-20); BUN (Urea Nitrogen) 35 mg/dL (8.4-25.7); Bilirubin, Total 1.0 mg/dL (0.3-1.2); Calc. Creatinine Clearance 80 mL/min (70-130); Calcium 8.9 mg/dL (7.8-10.44); Carbon Dioxide 33 mmol/L (23-31); Chloride 97 mmol/L (98-107); Globulin 3.6 g/dL (2.4-3.5); Glucose 81 mg/dL (80-115); Potassium 3.8 mmol/L (3.5-5.1); Sodium 143 mmol/L (136-145)
[2025-06-25 04:37] LABS: #Basophils 0.04 10x3/uL (0.0-0.2); #Eosinophils 0.18 10x3/uL (0.0-0.7); #Monocytes 0.55 10x3/uL (0.11-0.59); #Neutrophils 4.53 10x3/uL (1.40-6.50); %Basophils 0.7 % (0.0-1.0); %Eosinophils 3.0 % (0.0-10.0); %Lymphocytes 11.5 % (21.0-51.0); %Monocytes 9.1 % (0.0-10.0); %Neutrophils 75.2 % (42.0-75.0); Hematocrit 34.8 % (42.0-52.0); Hemoglobin 10.6 g/dL (14.0-18.0); Mean Corpuscular Hemoglobin 31.2 pg (27.0-31.0); Mean Corpuscular Volume 102.4 fL (78.0-98.0); Platelet Count 142 10x3/uL (130-400); Red Blood Cell (RBC) Count 3.40 mill/uL (4.70-6.10); White Blood Cell (WBC) Count 6.02 10x3/uL (4.8-10.8)
[2025-06-25 05:06] LABS: ALT (SGPT) Less than 7 U/L (Less than 45); AST (SGOT) 13 U/L (11-34); Albumin 2.7 g/dL (3.1-4.5); Alkaline Phosphatase 126 U/L (40-110); Anion Gap 14 mmol/L (10-20); BUN (Urea Nitrogen) 33 mg/dL (8.4-25.7); Bilirubin, Total 1.1 mg/dL (0.3-1.2); Calc. Creatinine Clearance 84 mL/min (70-130); Calcium 8.5 mg/dL (7.8-10.44); Carbon Dioxide 34 mmol/L (23-31); Chloride 97 mmol/L (98-107); Globulin 3.6 g/dL (2.4-3.5); Glucose 74 mg/dL (80-115); Potassium 3.3 mmol/L (3.5-5.1); Sodium 142 mmol/L (136-145)
[2025-06-25] MEDS ORDERED: Electrolyte Replacement Protocol 1 EACH FS SCH (06:30)
[2025-06-25] MEDS ORDERED: PHOS-NAK 1 PKT PACK PO PRN (06:30)
[2025-06-25] MEDS ORDERED: Potassium Chloride 20 MEQ in Premix 1 BAG IVPB PRN (06:30)
[2025-06-25] MEDS ORDERED: Magnesium 2 GM/50 ML(in water) 2 GM in Premix 1 BAG IVPB PRN (06:30)
[2025-06-25 10:49] LABS: Potassium 3.9 mmol/L (3.5-5.1)
[2025-06-26 04:56] LABS: #Basophils 0.04 10x3/uL (0.0-0.2); #Eosinophils 0.23 10x3/uL (0.0-0.7); #Monocytes 0.73 10x3/uL (0.11-0.59); #Neutrophils 5.37 10x3/uL (1.40-6.50); %Basophils 0.6 % (0.0-1.0); %Eosinophils 3.2 % (0.0-10.0); %Lymphocytes 10.3 % (21.0-51.0); %Monocytes 10.3 % (0.0-10.0); %Neutrophils 75.3 % (42.0-75.0); Hematocrit 43.0 % (42.0-52.0); Hemoglobin 13.2 g/dL (14.0-18.0); Mean Corpuscular Hemoglobin 30.9 pg (27.0-31.0); Mean Corpuscular Volume 100.7 fL (78.0-98.0); Platelet Count 176 10x3/uL (130-400); Red Blood Cell (RBC) Count 4.27 mill/uL (4.70-6.10); White Blood Cell (WBC) Count 7.12 10x3/uL (4.8-10.8)
[2025-06-26 05:20] LABS: ALT (SGPT) Less than 7 U/L (Less than 45); AST (SGOT) 16 U/L (11-34); Albumin 2.6 g/dL (3.1-4.5); Alkaline Phosphatase 130 U/L (40-110); Anion Gap 14 mmol/L (10-20); BUN (Urea Nitrogen) 33 mg/dL (8.4-25.7); Bilirubin, Total 1.1 mg/dL (0.3-1.2); Calc. Creatinine Clearance 79 mL/min (70-130); Calcium 8.7 mg/dL (7.8-10.44); Carbon Dioxide 36 mmol/L (23-31); Chloride 96 mmol/L (98-107); Globulin 3.6 g/dL (2.4-3.5); Glucose 75 mg/dL (80-115); Potassium 3.6 mmol/L (3.5-5.1); Sodium 142 mmol/L (136-145)
[2025-06-26 07:23] LABS: Actual Bicarbonate (HCO3v) 35.6 mEq/L (22-28); Base Excess 9.0 mEq/L (-2.0 to +3.0); Calcium, Ionized (venous) 1.09 mmol/L (1.16-1.32); Chloride (VBG) 95 mmol/L (98-106); Hematocrit-VBG 41 % (42.0-52.0); Hemoglobin (Hb) 14.1 g/dL (13.1-17.2); Potassium (VBG) 3.62 mmol/L (3.70-5.30); Sodium 140 mmol/L (133-146)
[2025-06-26] MEDS: Furosemide 40 MG TAB PO SCH (08:58)
[2025-06-26] MEDS ORDERED: Albumin 25% 25 GM (100 mL) BOT IVPB SCH (21:15)
[2025-06-27] MEDS: Albumin 5% 25 GM (500 mL) BOT IVPB SCH (00:06)
[2025-06-27 06:05] LABS: #Basophils 0.05 10x3/uL (0.0-0.2); #Eosinophils 0.24 10x3/uL (0.0-0.7); #Monocytes 0.51 10x3/uL (0.11-0.59); #Neutrophils 4.54 10x3/uL (1.40-6.50); %Basophils 0.8 % (0.0-1.0); %Eosinophils 4.0 % (0.0-10.0); %Lymphocytes 11.7 % (21.0-51.0); %Monocytes 8.4 % (0.0-10.0); %Neutrophils 74.9 % (42.0-75.0); Hematocrit 39.5 % (42.0-52.0); Hemoglobin 11.9 g/dL (14.0-18.0); Mean Corpuscular Hemoglobin 30.7 pg (27.0-31.0); Mean Corpuscular Volume 101.8 fL (78.0-98.0); Platelet Count 175 10x3/uL (130-400); Red Blood Cell (RBC) Count 3.88 mill/uL (4.70-6.10); White Blood Cell (WBC) Count 6.06 10x3/uL (4.8-10.8)
[2025-06-27 06:23] LABS: ALT (SGPT) 7 U/L (Less than 45); AST (SGOT) 18 U/L (11-34); Albumin 2.6 g/dL (3.1-4.5); Alkaline Phosphatase 121 U/L (40-110); Anion Gap 13 mmol/L (10-20); BUN (Urea Nitrogen) 32 mg/dL (8.4-25.7); Bilirubin, Total 1.2 mg/dL (0.3-1.2); Calc. Creatinine Clearance 80 mL/min (70-130); Calcium 8.5 mg/dL (7.8-10.44); Carbon Dioxide 34 mmol/L (23-31); Chloride 98 mmol/L (98-107); Globulin 3.3 g/dL (2.4-3.5); Glucose 76 mg/dL (80-115); Potassium 3.7 mmol/L (3.5-5.1); Sodium 141 mmol/L (136-145)
[2025-06-28 04:29] LABS: #Basophils 0.05 10x3/uL (0.0-0.2); #Eosinophils 0.26 10x3/uL (0.0-0.7); #Monocytes 0.55 10x3/uL (0.11-0.59); #Neutrophils 4.71 10x3/uL (1.40-6.50); %Basophils 0.8 % (0.0-1.0); %Eosinophils 4.1 % (0.0-10.0); %Lymphocytes 11.8 % (21.0-51.0); %Monocytes 8.7 % (0.0-10.0); %Neutrophils 74.4 % (42.0-75.0); Hematocrit 41.7 % (42.0-52.0); Hemoglobin 12.8 g/dL (14.0-18.0); Mean Corpuscular Hemoglobin 31.1 pg (27.0-31.0); Mean Corpuscular Volume 101.2 fL (78.0-98.0); Platelet Count 184 10x3/uL (130-400); Red Blood Cell (RBC) Count 4.12 mill/uL (4.70-6.10); White Blood Cell (WBC) Count 6.33 10x3/uL (4.8-10.8)
[2025-06-28 04:52] LABS: ALT (SGPT) 8 U/L (Less than 45); AST (SGOT) 27 U/L (11-34); Albumin 2.7 g/dL (3.1-4.5); Alkaline Phosphatase 138 U/L (40-110); Anion Gap 13 mmol/L (10-20); BUN (Urea Nitrogen) 34 mg/dL (8.4-25.7); Bilirubin, Total 1.4 mg/dL (0.3-1.2); Calc. Creatinine Clearance 74 mL/min (70-130); Calcium 8.6 mg/dL (7.8-10.44); Carbon Dioxide 37 mmol/L (23-31); Chloride 97 mmol/L (98-107); Globulin 3.5 g/dL (2.4-3.5); Glucose 73 mg/dL (80-115); Potassium 3.7 mmol/L (3.5-5.1); Sodium 143 mmol/L (136-145)
[2025-06-29 05:12] LABS: #Basophils 0.04 10x3/uL (0.0-0.2); #Eosinophils 0.27 10x3/uL (0.0-0.7); #Monocytes 0.62 10x3/uL (0.11-0.59); #Neutrophils 4.86 10x3/uL (1.40-6.50); %Basophils 0.6 % (0.0-1.0); %Eosinophils 4.1 % (0.0-10.0); %Lymphocytes 11.3 % (21.0-51.0); %Monocytes 9.5 % (0.0-10.0); %Neutrophils 74.0 % (42.0-75.0); Hematocrit 43.4 % (42.0-52.0); Hemoglobin 13.2 g/dL (14.0-18.0); Mean Corpuscular Hemoglobin 30.9 pg (27.0-31.0); Mean Corpuscular Volume 101.6 fL (78.0-98.0); Platelet Count 207 10x3/uL (130-400); Red Blood Cell (RBC) Count 4.27 mill/uL (4.70-6.10); White Blood Cell (WBC) Count 6.56 10x3/uL (4.8-10.8)
[2025-06-29 05:32] LABS: ALT (SGPT) 10 U/L (Less than 45); AST (SGOT) 34 U/L (11-34); Albumin 2.8 g/dL (3.1-4.5); Alkaline Phosphatase 140 U/L (40-110); Anion Gap 15 mmol/L (10-20); BUN (Urea Nitrogen) 36 mg/dL (8.4-25.7); Bilirubin, Total 1.4 mg/dL (0.3-1.2); Calc. Creatinine Clearance 82 mL/min (70-130); Calcium 8.8 mg/dL (7.8-10.44); Carbon Dioxide 35 mmol/L (23-31); Chloride 98 mmol/L (98-107); Globulin 3.7 g/dL (2.4-3.5); Glucose 74 mg/dL (80-115); Potassium 3.7 mmol/L (3.5-5.1); Sodium 144 mmol/L (136-145)
[2025-06-29 17:47] VITALS: BMI 36.8
[2025-06-30 04:27] LABS: #Basophils 0.04 10x3/uL (0.0-0.2); #Eosinophils 0.23 10x3/uL (0.0-0.7); #Monocytes 0.57 10x3/uL (0.11-0.59); #Neutrophils 4.66 10x3/uL (1.40-6.50); %Basophils 0.6 % (0.0-1.0); %Eosinophils 3.6 % (0.0-10.0); %Lymphocytes 13.3 % (21.0-51.0); %Monocytes 8.9 % (0.0-10.0); %Neutrophils 73.3 % (42.0-75.0); Hematocrit 39.9 % (42.0-52.0); Hemoglobin 12.1 g/dL (14.0-18.0); Mean Corpuscular Hemoglobin 30.9 pg (27.0-31.0); Mean Corpuscular Volume 102.0 fL (78.0-98.0); Platelet Count 209 10x3/uL (130-400); Red Blood Cell (RBC) Count 3.91 mill/uL (4.70-6.10); White Blood Cell (WBC) Count 6.37 10x3/uL (4.8-10.8)
[2025-06-30 04:59] LABS: ALT (SGPT) 9 U/L (Less than 45); AST (SGOT) 22 U/L (11-34); Albumin 2.6 g/dL (3.1-4.5); Alkaline Phosphatase 128 U/L (40-110); Anion Gap 14 mmol/L (10-20); BUN (Urea Nitrogen) 35 mg/dL (8.4-25.7); Bilirubin, Total 1.3 mg/dL (0.3-1.2); Calc. Creatinine Clearance 82 mL/min (70-130); Calcium 8.3 mg/dL (7.8-10.44); Carbon Dioxide 35 mmol/L (23-31); Chloride 98 mmol/L (98-107); Globulin 3.5 g/dL (2.4-3.5); Glucose 76 mg/dL (80-115); Potassium 3.6 mmol/L (3.5-5.1); Sodium 143 mmol/L (136-145)
[2025-06-30 12:31] LABS: Actual Bicarbonate (HCO3a) 33.0 mEq/L (22-28); Base Excess (BEa) 7.0 mEq/L (-2.0 to +3.0); CO2 Tension 52.4 mmHg (35.0-45.0); Calcium, Ionized (arterial) 1.12 mmol/L (1.12-1.30); Hematocrit-ABG 40 % (42.0-52.0); Hemoglobin (Hb) 13.6 g/dL (14.0-18.0); O2 Tension (PaO2), arterial 65.5 mmHg (> 80.0); Potassium - ABG Lab 3.55 mmol/L (3.70-5.30); pH, Arterial 7.417 (7.35-7.45)
[2025-06-30 15:54] LABS: Puncture Site Right Radial artery
[2025-07-01 01:31] LABS: #Basophils 0.04 10x3/uL (0.0-0.2); #Eosinophils 0.28 10x3/uL (0.0-0.7); #Monocytes 0.48 10x3/uL (0.11-0.59); #Neutrophils 4.56 10x3/uL (1.40-6.50); %Basophils 0.7 % (0.0-1.0); %Eosinophils 4.6 % (0.0-10.0); %Lymphocytes 11.1 % (21.0-51.0); %Monocytes 7.9 % (0.0-10.0); %Neutrophils 75.2 % (42.0-75.0); Hematocrit 42.8 % (42.0-52.0); Hemoglobin 12.9 g/dL (14.0-18.0); Mean Corpuscular Hemoglobin 30.6 pg (27.0-31.0); Mean Corpuscular Volume 101.7 fL (78.0-98.0); Platelet Count 224 10x3/uL (130-400); Red Blood Cell (RBC) Count 4.21 mill/uL (4.70-6.10); White Blood Cell (WBC) Count 6.06 10x3/uL (4.8-10.8)
[2025-07-01 01:55] LABS: ALT (SGPT) 9 U/L (Less than 45); AST (SGOT) 25 U/L (11-34); Albumin 2.8 g/dL (3.1-4.5); Alkaline Phosphatase 130 U/L (40-110); Anion Gap 14 mmol/L (10-20); BUN (Urea Nitrogen) 33 mg/dL (8.4-25.7); Bilirubin, Total 1.3 mg/dL (0.3-1.2); Calc. Creatinine Clearance 90 mL/min (70-130); Calcium 8.6 mg/dL (7.8-10.44); Carbon Dioxide 34 mmol/L (23-31); Chloride 98 mmol/L (98-107); Globulin 3.5 g/dL (2.4-3.5); Glucose 85 mg/dL (80-115); Potassium 3.4 mmol/L (3.5-5.1); Sodium 143 mmol/L (136-145)
[2025-07-01] MEDS: Furosemide 20 MG (2 mL) VIAL SLOW IVP SCH ×2 (11:22→16:17)
[2025-07-02 01:59] LABS: #Basophils 0.06 10x3/uL (0.0-0.2); #Eosinophils 0.28 10x3/uL (0.0-0.7); #Monocytes 0.62 10x3/uL (0.11-0.59); #Neutrophils 5.63 10x3/uL (1.40-6.50); %Basophils 0.8 % (0.0-1.0); %Eosinophils 3.8 % (0.0-10.0); %Lymphocytes 11.2 % (21.0-51.0); %Monocytes 8.3 % (0.0-10.0); %Neutrophils 75.6 % (42.0-75.0); Hematocrit 43.1 % (42.0-52.0); Hemoglobin 13.2 g/dL (14.0-18.0); Mean Corpuscular Hemoglobin 31.1 pg (27.0-31.0); Mean Corpuscular Volume 101.7 fL (78.0-98.0); Platelet Count 241 10x3/uL (130-400); Red Blood Cell (RBC) Count 4.24 mill/uL (4.70-6.10); White Blood Cell (WBC) Count 7.44 10x3/uL (4.8-10.8)
[2025-07-02 02:09] LABS: Actual Bicarbonate (HCO3v) 33.7 mEq/L (22-28); Base Excess 5.3 mEq/L (-2.0 to +3.0); Calcium, Ionized (venous) 1.11 mmol/L (1.16-1.32); Chloride (VBG) 97 mmol/L (98-106); Hematocrit-VBG 41 % (42.0-52.0); Hemoglobin (Hb) 14.0 g/dL (13.1-17.2); Potassium (VBG) 3.69 mmol/L (3.70-5.30); Sodium 141 mmol/L (133-146)
[2025-07-02 04:13] LABS: ALT (SGPT) 13 U/L (Less than 45); AST (SGOT) 28 U/L (11-34); Albumin 2.8 g/dL (3.1-4.5); Alkaline Phosphatase 143 U/L (40-110); Anion Gap 18 mmol/L (10-20); BUN (Urea Nitrogen) 36 mg/dL (8.4-25.7); Bilirubin, Total 1.2 mg/dL (0.3-1.2); Calc. Creatinine Clearance 88 mL/min (70-130); Calcium 8.7 mg/dL (7.8-10.44); Carbon Dioxide 33 mmol/L (23-31); Chloride 99 mmol/L (98-107); Globulin 3.6 g/dL (2.4-3.5); Glucose 82 mg/dL (80-115); Potassium 3.7 mmol/L (3.5-5.1); Sodium 146 mmol/L (136-145)
[2025-07-02 16:15] VITALS: BP 155/106
[2025-07-03 05:03] LABS: #Basophils 0.05 10x3/uL (0.0-0.2); #Eosinophils 0.29 10x3/uL (0.0-0.7); #Monocytes 0.52 10x3/uL (0.11-0.59); #Neutrophils 4.71 10x3/uL (1.40-6.50); %Basophils 0.8 % (0.0-1.0); %Eosinophils 4.5 % (0.0-10.0); %Lymphocytes 12.8 % (21.0-51.0); %Monocytes 8.1 % (0.0-10.0); %Neutrophils 73.5 % (42.0-75.0); Hematocrit 41.9 % (42.0-52.0); Hemoglobin 12.6 g/dL (14.0-18.0); Mean Corpuscular Hemoglobin 30.7 pg (27.0-31.0); Mean Corpuscular Volume 102.2 fL (78.0-98.0); Platelet Count 247 10x3/uL (130-400); Red Blood Cell (RBC) Count 4.10 mill/uL (4.70-6.10); White Blood Cell (WBC) Count 6.41 10x3/uL (4.8-10.8)
[2025-07-03 05:16] LABS: ALT (SGPT) 13 U/L (Less than 45); AST (SGOT) 28 U/L (11-34); Albumin 2.8 g/dL (3.1-4.5); Alkaline Phosphatase 145 U/L (40-110); Anion Gap 14 mmol/L (10-20); BUN (Urea Nitrogen) 36 mg/dL (8.4-25.7); Bilirubin, Total 1.1 mg/dL (0.3-1.2); Calc. Creatinine Clearance 87 mL/min (70-130); Calcium 8.6 mg/dL (7.8-10.44); Carbon Dioxide 33 mmol/L (23-31); Chloride 100 mmol/L (98-107); Globulin 3.7 g/dL (2.4-3.5); Glucose 79 mg/dL (80-115); Potassium 3.6 mmol/L (3.5-5.1); Sodium 143 mmol/L (136-145)
[2025-07-03 16:14] VITALS: TEMP 97.2
[2025-07-03] MEDS ORDERED: Magnesium Sulfate In Water 4 GM in Premix 1 BAG IVPB PRN (16:15)
[2025-07-03] MEDS ORDERED: PHOS-NAK 1 PKT PACK PO PRN (16:15)
[2025-07-03] MEDS ORDERED: Potassium Chloride 20 MEQ in Premix 1 BAG IVPB PRN (16:15)
== END 2025-07-03 16:05 | DRG 602 ==
LOC: ERS 16:36 → 2NO 19:58 → IMCU/EMU 06-21 22:43 → 2NO 06-29 12:30 → IMCU/EMU 06-30 15:46
PROVIDERS: ADMIT Internal Medicine; ATTEND Internal Medicine
PROC: 4A133R1 Monitoring of Arterial Saturation, Peripheral, Percutaneous Approach (ICD-10-PCS; principal; 2025-06-21)
PROC: 3E03329 Introduction of Other Anti-infective into Peripheral Vein, Percutaneous Approach (ICD-10-PCS; 2025-06-21)
PROC: 30233J1 Transfusion of Nonautologous Serum Albumin into Peripheral Vein, Percutaneous Approach (ICD-10-PCS; 2025-06-22)
PROC: 0T9B70Z Drainage of Bladder with Drainage Device, Via Natural or Artificial Opening (ICD-10-PCS; 2025-06-22)
PROC: 05HY33Z Insertion of Infusion Device into Upper Vein, Percutaneous Approach (ICD-10-PCS; 2025-06-22)
PROC: 3E04329 Introduction of Other Anti-infective into Central Vein, Percutaneous Approach (ICD-10-PCS; 2025-06-22)
DX: L03.115 Cellulitis of right lower limb (principal); I50.33 Acute on chronic diastolic (congestive) heart failure; J96.21 Acute and chronic respiratory failure with hypoxia; R78.81 Bacteremia; D68.51 Activated protein C resistance; L97.819 Non-pressure chronic ulcer of other part of right lower leg with unspecified severity; L97.829 Non-pressure chronic ulcer of other part of left lower leg with unspecified severity; I48.19 Other persistent atrial fibrillation; E87.29 Other acidosis; N17.9 Acute kidney failure, unspecified; E87.3 Alkalosis; I11.0 Hypertensive heart disease with heart failure; L03.116 Cellulitis of left lower limb; I27.20 Pulmonary hypertension, unspecified; I83.018 Varicose veins of right lower extremity with ulcer other part of lower leg; I83.028 Varicose veins of left lower extremity with ulcer other part of lower leg; E78.5 Hyperlipidemia, unspecified; E66.01 Morbid (severe) obesity due to excess calories; I25.10 Atherosclerotic heart disease of native coronary artery without angina pectoris; F10.90 Alcohol use, unspecified, uncomplicated; G47.33 Obstructive sleep apnea (adult) (pediatric); E78.00 Pure hypercholesterolemia, unspecified; I50.810 Right heart failure, unspecified; I36.2 Nonrheumatic tricuspid (valve) stenosis with insufficiency; R19.7 Diarrhea, unspecified; Z99.81 Dependence on supplemental oxygen; Z86.718 Personal history of other venous thrombosis and embolism; Z98.890 Other specified postprocedural states; Z87.442 Personal history of urinary calculi; Z87.891 Personal history of nicotine dependence; Z91.018 Allergy to other foods; Z79.899 Other long term (current) drug therapy; Z79.82 Long term (current) use of aspirin; Z79.01 Long term (current) use of anticoagulants; Z68.36 Body mass index [BMI] 36.0-36.9, adult
CPT/HCPCS: 36415; 36416; 36600; 71045; 80048; 80053; 80202; 82565; 82805; 83036; 83605; 83735; 83880; 84484; 85025; 85027; 86141; 87040; 87077; 87149; 87186; 93005; 93010; 93306; 93312; 94660; 96365; 96375; 97139; J0692; J1120; J1940; J2003; J2405; J2704; J3373; J3475; J7030; J7050; J7512; P9045; P9047

== ENCOUNTER 2025-07-18 17:37 | Inpatient (IN) | payer OTHER ==
[2025-07-18] MEDS ORDERED: Furosemide 40 MG (4 mL) VIAL ONE ×2 (18:05→22:34)
[2025-07-18 19:19] LABS: #Basophils 0.04 10x3/uL (0.0-0.2); #Eosinophils 0.20 10x3/uL (0.0-0.7); #Monocytes 0.55 10x3/uL (0.11-0.59); #Neutrophils 5.71 10x3/uL (1.40-6.50); %Basophils 0.6 % (0.0-1.0); %Eosinophils 2.8 % (0.0-10.0); %Lymphocytes 10.2 % (21.0-51.0); %Monocytes 7.6 % (0.0-10.0); %Neutrophils 78.5 % (42.0-75.0); Hematocrit 41.5 % (42.0-52.0); Hemoglobin 12.5 g/dL (14.0-18.0); Mean Corpuscular Hemoglobin 30.7 pg (27.0-31.0); Mean Corpuscular Volume 102.0 fL (78.0-98.0); Platelet Count 196 10x3/uL (130-400); Red Blood Cell (RBC) Count 4.07 mill/uL (4.70-6.10); White Blood Cell (WBC) Count 7.26 10x3/uL (4.8-10.8)
[2025-07-18 20:19] LABS: Albumin 2.9 g/dL (3.1-4.5); Calcium 8.6 mg/dL (7.8-10.44); Chloride 107 mmol/L (98-107); Potassium 4.0 mmol/L (3.5-5.1); Sodium 145 mmol/L (136-145)
[2025-07-18 20:20] LABS: Globulin 3.9 g/dL (2.4-3.5); Glucose 80 mg/dL (80-115)
[2025-07-18 20:21] LABS: Anion Gap 13 mmol/L (10-20); Carbon Dioxide 29 mmol/L (23-31)
[2025-07-18 20:23] LABS: Alkaline Phosphatase 140 U/L (40-110); Bilirubin, Total 1.0 mg/dL (0.3-1.2); Lipase 11 U/L (8-78)
[2025-07-18 20:24] LABS: BUN (Urea Nitrogen) 25 mg/dL (8.4-25.7); Calc. Creatinine Clearance 0 mL/min (70-130)
[2025-07-18 20:26] LABS: ALT (SGPT) 12 U/L (Less than 45); AST (SGOT) 23 U/L (11-34)
[2025-07-18] MEDS ORDERED: Senokot S 8.6-50 MG TAB PO PRN (23:21)
[2025-07-18] MEDS ORDERED: Bisacodyl 10 MG SUPP PR PRN (23:21)
[2025-07-18] MEDS ORDERED: Ondansetron PF 4 MG/2 ML Vial IVP PRN (23:21)
[2025-07-18] MEDS ORDERED: Guaifenesin DM 100-10/5 ML UDCUP PO PRN (23:21)
[2025-07-18] MEDS ORDERED: Magnesium Sulfate In Water 4 GM in Premix 1 BAG IVPB PRN (23:30)
[2025-07-18] MEDS ORDERED: Potassium Chloride 20 MEQ in Premix 1 BAG IVPB PRN (23:30)
[2025-07-18] MEDS ORDERED: Electrolyte Replacement Protocol 1 EACH FS SCH (23:30)
[2025-07-18] MEDS ORDERED: PHOS-NAK 1 PKT PACK PO PRN (23:30)
[2025-07-19 07:10] LABS: #Basophils 0.03 10x3/uL (0.0-0.2); #Eosinophils 0.22 10x3/uL (0.0-0.7); #Monocytes 0.60 10x3/uL (0.11-0.59); #Neutrophils 5.30 10x3/uL (1.40-6.50); %Basophils 0.4 % (0.0-1.0); %Eosinophils 3.2 % (0.0-10.0); %Lymphocytes 9.1 % (21.0-51.0); %Monocytes 8.8 % (0.0-10.0); %Neutrophils 78.2 % (42.0-75.0); Hematocrit 37.9 % (42.0-52.0); Hemoglobin 11.4 g/dL (14.0-18.0); Mean Corpuscular Hemoglobin 30.9 pg (27.0-31.0); Mean Corpuscular Volume 102.7 fL (78.0-98.0); Platelet Count 202 10x3/uL (130-400); Red Blood Cell (RBC) Count 3.69 mill/uL (4.70-6.10); White Blood Cell (WBC) Count 6.79 10x3/uL (4.8-10.8)
[2025-07-19 07:26] LABS: ALT (SGPT) 12 U/L (Less than 45); AST (SGOT) 21 U/L (11-34); Albumin 2.8 g/dL (3.1-4.5); Alkaline Phosphatase 131 U/L (40-110); Anion Gap 9 mmol/L (10-20); BUN (Urea Nitrogen) 25 mg/dL (8.4-25.7); Bilirubin, Total 1.0 mg/dL (0.3-1.2); Calc. Creatinine Clearance 116 mL/min (70-130); Calcium 8.6 mg/dL (7.8-10.44); Carbon Dioxide 31 mmol/L (23-31); Chloride 107 mmol/L (98-107); Globulin 3.7 g/dL (2.4-3.5); Glucose 72 mg/dL (80-115); Magnesium 1.6 mg/dL (1.6-2.6); Potassium 3.8 mmol/L (3.5-5.1); Sodium 143 mmol/L (136-145)
[2025-07-19] MEDS: Aspirin 81 mg Enteric Coated Tablet PO SCH (08:48)
[2025-07-19] MEDS: Famotidine 20 MG TAB PO SCH (08:48)
[2025-07-19] MEDS: Furosemide 40 MG (4 mL) VIAL SLOW IVP SCH (08:49)
[2025-07-19] MEDS: Apixaban 5 MG TAB PO SCH (08:49)
[2025-07-19] MEDS: Melatonin 3 MG TAB PO PRN (21:30)
[2025-07-20 03:47] LABS: Anion Gap 8 mmol/L (10-20); BUN (Urea Nitrogen) 29 mg/dL (8.4-25.7); Calc. Creatinine Clearance 115 mL/min (70-130); Calcium 8.8 mg/dL (7.8-10.44); Carbon Dioxide 33 mmol/L (23-31); Chloride 106 mmol/L (98-107); Glucose 78 mg/dL (80-115); Potassium 3.6 mmol/L (3.5-5.1); Sodium 143 mmol/L (136-145)
[2025-07-20] MEDS: Mupirocin 1 GM TUBE NASAL DECOLONIZATION NASAL SCH (21:36)
[2025-07-20] MEDS: Acetaminophen 325 MG TAB PO PRN (21:38)
[2025-07-21 04:58] LABS: #Basophils 0.03 10x3/uL (0.0-0.2); #Eosinophils 0.23 10x3/uL (0.0-0.7); #Monocytes 0.58 10x3/uL (0.11-0.59); #Neutrophils 4.42 10x3/uL (1.40-6.50); %Basophils 0.5 % (0.0-1.0); %Eosinophils 3.9 % (0.0-10.0); %Lymphocytes 10.8 % (21.0-51.0); %Monocytes 9.8 % (0.0-10.0); %Neutrophils 74.8 % (42.0-75.0); Hematocrit 39.7 % (42.0-52.0); Hemoglobin 12.1 g/dL (14.0-18.0); Mean Corpuscular Hemoglobin 30.9 pg (27.0-31.0); Mean Corpuscular Volume 101.3 fL (78.0-98.0); Platelet Count 207 10x3/uL (130-400); Red Blood Cell (RBC) Count 3.92 mill/uL (4.70-6.10); White Blood Cell (WBC) Count 5.91 10x3/uL (4.8-10.8)
[2025-07-21 05:20] LABS: Anion Gap 17 mmol/L (10-20); BUN (Urea Nitrogen) 30 mg/dL (8.4-25.7); Calc. Creatinine Clearance 108 mL/min (70-130); Calcium 8.9 mg/dL (7.8-10.44); Carbon Dioxide 32 mmol/L (23-31); Chloride 99 mmol/L (98-107); Glucose 70 mg/dL (80-115); Potassium 3.2 mmol/L (3.5-5.1); Sodium 145 mmol/L (136-145)
[2025-07-22 04:28] LABS: #Basophils 0.04 10x3/uL (0.0-0.2); #Eosinophils 0.27 10x3/uL (0.0-0.7); #Monocytes 0.65 10x3/uL (0.11-0.59); #Neutrophils 4.20 10x3/uL (1.40-6.50); %Basophils 0.7 % (0.0-1.0); %Eosinophils 4.5 % (0.0-10.0); %Lymphocytes 12.8 % (21.0-51.0); %Monocytes 10.9 % (0.0-10.0); %Neutrophils 70.8 % (42.0-75.0); Hematocrit 39.3 % (42.0-52.0); Hemoglobin 12.2 g/dL (14.0-18.0); Mean Corpuscular Hemoglobin 31.4 pg (27.0-31.0); Mean Corpuscular Volume 101.0 fL (78.0-98.0); Platelet Count 229 10x3/uL (130-400); Red Blood Cell (RBC) Count 3.89 mill/uL (4.70-6.10); White Blood Cell (WBC) Count 5.94 10x3/uL (4.8-10.8)
[2025-07-22 04:36] LABS: Anion Gap 16 mmol/L (10-20); BUN (Urea Nitrogen) 29 mg/dL (8.4-25.7); Calc. Creatinine Clearance 99 mL/min (70-130); Calcium 8.8 mg/dL (7.8-10.44); Carbon Dioxide 32 mmol/L (23-31); Chloride 99 mmol/L (98-107); Glucose 75 mg/dL (80-115); Potassium 3.3 mmol/L (3.5-5.1); Sodium 144 mmol/L (136-145)
[2025-07-22 12:09] LABS: Potassium 3.8 mmol/L (3.5-5.1)
[2025-07-23 03:26] LABS: #Basophils 0.03 10x3/uL (0.0-0.2); #Eosinophils 0.22 10x3/uL (0.0-0.7); #Monocytes 0.55 10x3/uL (0.11-0.59); #Neutrophils 4.18 10x3/uL (1.40-6.50); %Basophils 0.5 % (0.0-1.0); %Eosinophils 3.8 % (0.0-10.0); %Lymphocytes 13.6 % (21.0-51.0); %Monocytes 9.5 % (0.0-10.0); %Neutrophils 72.3 % (42.0-75.0); Hematocrit 39.4 % (42.0-52.0); Hemoglobin 11.8 g/dL (14.0-18.0); Mean Corpuscular Hemoglobin 30.5 pg (27.0-31.0); Mean Corpuscular Volume 101.8 fL (78.0-98.0); Platelet Count 215 10x3/uL (130-400); Red Blood Cell (RBC) Count 3.87 mill/uL (4.70-6.10); White Blood Cell (WBC) Count 5.79 10x3/uL (4.8-10.8)
[2025-07-23 03:52] LABS: Anion Gap 16 mmol/L (10-20); BUN (Urea Nitrogen) 33 mg/dL (8.4-25.7); Calc. Creatinine Clearance 97 mL/min (70-130); Calcium 8.8 mg/dL (7.8-10.44); Carbon Dioxide 35 mmol/L (23-31); Chloride 97 mmol/L (98-107); Glucose 74 mg/dL (80-115); Potassium 3.3 mmol/L (3.5-5.1); Sodium 145 mmol/L (136-145)
[2025-07-23] MEDS: Dapagliflozin Propanediol 10 MG TAB PO SCH (12:24)
[2025-07-24 04:23] LABS: Anion Gap 13 mmol/L (10-20); BUN (Urea Nitrogen) 35 mg/dL (8.4-25.7); Calc. Creatinine Clearance 96 mL/min (70-130); Calcium 8.9 mg/dL (7.8-10.44); Carbon Dioxide 38 mmol/L (23-31); Chloride 96 mmol/L (98-107); Glucose 73 mg/dL (80-115); Potassium 3.4 mmol/L (3.5-5.1); Sodium 144 mmol/L (136-145)
[2025-07-24] MEDS: Spironolactone 25 MG TAB PO SCH (10:59)
[2025-07-24 12:36] VITALS: BMI 31.8
[2025-07-24] MEDS: Furosemide 40 MG TAB PO SCH (14:00)
[2025-07-25 06:02] VITALS: BMI 31.8
[2025-07-28 04:35] LABS: Hematocrit 39.4 % (42.0-52.0); Hemoglobin 11.8 g/dL (14.0-18.0); Mean Corpuscular Hemoglobin 31.0 pg (27.0-31.0); Mean Corpuscular Volume 103.4 fL (78.0-98.0); Platelet Count 201 10x3/uL (130-400); Red Blood Cell (RBC) Count 3.81 mill/uL (4.70-6.10); White Blood Cell (WBC) Count 5.66 10x3/uL (4.8-10.8)
[2025-07-28 05:09] LABS: Anion Gap 14 mmol/L (10-20); BUN (Urea Nitrogen) 36 mg/dL (8.4-25.7); Calc. Creatinine Clearance 87 mL/min (70-130); Calcium 9.0 mg/dL (7.8-10.44); Carbon Dioxide 36 mmol/L (23-31); Chloride 99 mmol/L (98-107); Glucose 74 mg/dL (80-115); Magnesium 1.8 mg/dL (1.6-2.6); Potassium 4.1 mmol/L (3.5-5.1); Sodium 145 mmol/L (136-145)
[2025-07-29 05:16] LABS: Hematocrit 39.5 % (42.0-52.0); Hemoglobin 11.9 g/dL (14.0-18.0); Mean Corpuscular Hemoglobin 31.0 pg (27.0-31.0); Mean Corpuscular Volume 102.9 fL (78.0-98.0); Platelet Count 200 10x3/uL (130-400); Red Blood Cell (RBC) Count 3.84 mill/uL (4.70-6.10); White Blood Cell (WBC) Count 6.60 10x3/uL (4.8-10.8)
[2025-07-29 05:28] LABS: Anion Gap 14 mmol/L (10-20); BUN (Urea Nitrogen) 39 mg/dL (8.4-25.7); Calc. Creatinine Clearance 90 mL/min (70-130); Calcium 8.9 mg/dL (7.8-10.44); Carbon Dioxide 33 mmol/L (23-31); Chloride 98 mmol/L (98-107); Glucose 76 mg/dL (80-115); Magnesium 1.8 mg/dL (1.6-2.6); Potassium 3.3 mmol/L (3.5-5.1); Sodium 142 mmol/L (136-145)
[2025-07-29 11:38] VITALS: BP 105/76; TEMP 98
== END 2025-07-29 13:10 | disposition home or self-care (01) | DRG 291 ==
LOC: ERS 17:37 → ERHOLD 23:01 → IMCU/EMU 07-19 04:31 → SURG A 07-28 18:44
PROVIDERS: ADMIT Internal Medicine; ATTEND Internal Medicine
PROC: 5A0935A Assistance with Respiratory Ventilation, Less than 24 Consecutive Hours, High Flow/Velocity Cannula (ICD-10-PCS; principal; 2025-07-18)
PROC: 5A09357 Assistance with Respiratory Ventilation, Less than 24 Consecutive Hours, Continuous Positive Airway Pressure (ICD-10-PCS; 2025-07-18)
PROC: 5A09357 Assistance with Respiratory Ventilation, Less than 24 Consecutive Hours, Continuous Positive Airway Pressure (ICD-10-PCS; 2025-07-28)
DX: I11.0 Hypertensive heart disease with heart failure (principal); I50.43 Acute on chronic combined systolic (congestive) and diastolic (congestive) heart failure; J96.21 Acute and chronic respiratory failure with hypoxia; I48.92 Unspecified atrial flutter; I82.509 Chronic embolism and thrombosis of unspecified deep veins of unspecified lower extremity; I48.19 Other persistent atrial fibrillation; Z66 Do not resuscitate; I25.10 Atherosclerotic heart disease of native coronary artery without angina pectoris; E78.5 Hyperlipidemia, unspecified; F10.90 Alcohol use, unspecified, uncomplicated; G47.33 Obstructive sleep apnea (adult) (pediatric); E78.00 Pure hypercholesterolemia, unspecified; I71.21 Aneurysm of the ascending aorta, without rupture; E66.01 Morbid (severe) obesity due to excess calories; I27.20 Pulmonary hypertension, unspecified; Z91.018 Allergy to other foods; Z82.49 Family history of ischemic heart disease and other diseases of the circulatory system; Z87.891 Personal history of nicotine dependence; Z87.442 Personal history of urinary calculi; Z98.890 Other specified postprocedural states; Z90.89 Acquired absence of other organs; Z68.31 Body mass index [BMI] 31.0-31.9, adult; E87.6 Hypokalemia; Z79.82 Long term (current) use of aspirin; Z79.899 Other long term (current) drug therapy; Z79.01 Long term (current) use of anticoagulants
CPT/HCPCS: 36415; 71045; 71275; 80048; 80053; 83605; 83690; 83735; 83880; 84100; 84484; 85025; 85027; 87040; 93005; 94660; 94760; 96374; 96376; J1940